=== PATIENT | male | born 1960 | race Caucasian/White ===

== ENCOUNTER → 2020-07-30 13:04 | Outpatient (BNVA) | payer OTHER, SELFPAY | PROVIDERS: Visit Provider Physician Assistant | DX: M06.9 Rheumatoid arthritis, unspecified (principal); M22.2X1 Patellofemoral disorders, right knee; M22.2X2 Patellofemoral disorders, left knee | CPT/HCPCS: 99202 ==

== ENCOUNTER 2020-08-31 14:46 | Outpatient (RCR) | payer OTHER, SELFPAY ==
--- NOTE | 2020-09-23 09:46 | MHC.PT.DC ---
[facility] [place] [facility] [place] Office [place] [facility] [address] Yulia Karimi [address] [phone] F: [phone] F: [phone] F: [phone] F: [phone] Physical Therapy Discharge Report Diagnosis: B patella femoral dysfunction Date of Surgery: Date of Evaluation: 08/31/20 Date of Discharge: 09/23/20 Treatments to Date: 1 Cancellations to Date: 0 No Shows to Date: 0 Discharge Status: Patient Elected to Stop Discharge Summary: Pt is a 59 y/o male referred to PT for eval and treat of B knee pain. Pt is clinically significant for increased quad and hamstring tightness, Pt is strong about B knees / hips and walks with a relative WNL gait. PT eval was completed and while discussing his program Pt reported that he did not want to continue PT until he is seen by rheumatology citing he does not believe PT is warranted until he knows for sure the cause of his pain; Note: Pt also cited co pay as a factor as well. Pt was educated on a course of PT and whether or not he is able to achieve his goals goes a long way towards trialing other management and assessments; Pt adamant he did not want to participate until he is seen by rheumatology; Pt did express that he felt his evaluation was informative and pleasant and hoped to work with this therapist in the future if needed, but not at this time. Also of note: Pt reports he has not seen a PCP in 10-12 years. Chart held open x 3 weeks in case Pt returned for care. Electronically signed by: Chris Robbins PT. Please sign and return to therapist. Thank you for your referral.
== END 2020-09-23 09:48 | disposition home or self-care (01) ==
LOC: HO.PTCHIC 14:46
PROVIDERS: PCP Internal Medicine; Visit Provider Physician Assistant
DX: M22.2X1 Patellofemoral disorders, right knee (principal); M22.2X2 Patellofemoral disorders, left knee; M06.9 Rheumatoid arthritis, unspecified
CPT/HCPCS: 97110; 97161

== ENCOUNTER 2020-09-30 09:05 | Outpatient (REF) | payer OTHER, SELFPAY ==
--- NOTE | ~2020-09-30 | XR_ITS ---
EXAMINATION: XR FOOT, BILATERAL CLINICAL INFORMATION: Joint pain. COMPARISON: None TECHNIQUE: Bilateral feet each 3 views . FINDINGS: Right foot: Prominent accessory navicular. No acute fracture or dislocation is seen. No apparent significant arthropathy is seen. Minimal dorsal talar neck spurring. Small anterior osteophyte in the distal tibia. No erosions. No abnormal soft tissue calcification. Left foot: Suspected small accessory navicular. No fracture or dislocation. No apparent significant arthropathy. Alignment is maintained. No erosions. No abnormal soft tissue calcification. Small Achilles tendon insertional enthesopathy. XR/XR foot RT 2V IMPRESSION: No visible significant arthropathy. No acute fracture.
--- NOTE | ~2020-09-30 | XR_ITS ---
EXAMINATION: XR KNEE, LEFT CLINICAL INFORMATION: Pain. COMPARISON: None TECHNIQUE: Four views of the left knee. FINDINGS: Mild medial compartment joint space narrowing. No fracture or dislocation. No effusion. No abnormal soft tissue calcification. XR/XR knee LT 3V IMPRESSION: Mild medial compartment arthritis.
--- NOTE | ~2020-09-30 | XR_ITS ---
EXAMINATION: XR FOOT, BILATERAL CLINICAL INFORMATION: Joint pain. COMPARISON: None TECHNIQUE: Bilateral feet each 3 views . FINDINGS: Right foot: Prominent accessory navicular. No acute fracture or dislocation is seen. No apparent significant arthropathy is seen. Minimal dorsal talar neck spurring. Small anterior osteophyte in the distal tibia. No erosions. No abnormal soft tissue calcification. Left foot: Suspected small accessory navicular. No fracture or dislocation. No apparent significant arthropathy. Alignment is maintained. No erosions. No abnormal soft tissue calcification. Small Achilles tendon insertional enthesopathy. XR/XR foot LT 2V IMPRESSION: No visible significant arthropathy. No acute fracture.
[2020-09-30 10:29] LABS: MANUAL DIFF FLAG NO
[2020-09-30 10:41] LABS: Basophils Absolute Auto 0.1 X10*3/uL (0.0-0.2); Basophils Percent Auto 0.9 % (0-2); Eosinophils Absolute Auto 0.5 X10*3/uL (0.0-0.4); Eosinophils Percent Auto 5.5 % (0-4); Hematocrit 41.5 % (42-52); Hemoglobin 14.3 g/dl (14.0-18.0); Imm Gran Abs Auto 0.03 X10*3/uL (0.00-0.03); Imm Gran Pct Auto 0.3 % (0.0-0.4); Lymphocytes Absolute Auto 3.6 X10*3/uL (1.2-4.9); Lymphocytes Percent Auto 36.4 % (20-40); Mean Corpuscular HGB Conc 34.5 g/dl (31.0-36.0); Mean Corpuscular Hemoglobin 29.5 pg (27.0-33.0); Mean Corpuscular Volume 85.6 fL (80-98); Mean Platelet Volume 9.5 fL (9.4-12.4); Monocytes Absolute Auto 0.7 X10*3/uL (0.1-1.2); Monocytes Percent Auto 6.9 % (2-11); Neutrophils Absolute Auto 4.9 X10*3/uL (2.0-8.3); Platelet Count 234 X10*3/uL (160-400); Red Blood Count 4.85 X10*6/uL (4.60-5.80); Red Cell Distribution Width 12.6 % (11.0-16.0); White Blood Count 9.8 X10*3/uL (4.8-10.8)
[2020-09-30 10:50] LABS: Alanine Aminotransferase 26 U/L (0-40); Albumin Level 4.4 g/dL (3.5-5.0); Alkaline Phosphatase 72 U/L (39-117); Anion Gap 14 (12-20); Aspartate Amino Transferase 22 U/L (5-37); Bilirubin Total 0.6 mg/dL (0.0-1.0); Blood Urea Nitrogen 14 mg/dL (9-16); C Reactive Protein 0.41 mg/dL (< or = 0.50); Calcium 9.2 mg/dL (8.4-10.2); Carbon Dioxide 27 mmol/L (22-29); Chloride 102 mmol/L (96-108); Estimated Glomerular Filt Rate > 60; Glucose Random 129 mg/dL (60-115); Potassium 4.5 mmol/L (3.3-5.1); Rheumatoid Factor < 15.0 IU/mL (<15.0); Sodium 138 mmol/L (135-145); Total Protein 7.3 g/dL (6.5-8.0)
[2020-09-30 11:15] LABS: Thyroid Stimulating Hormone 2.49 uIU/mL (0.32-4.0)
[2020-09-30 11:30] LABS: Erythrocyte Sedimentation Rate 5 MM/HR (0-15)
[2020-10-01 05:07] LABS: Lyme Abs Screen <0.90 index
[2020-10-05 13:17] LABS: Cyclic Citrullinated Peptide <16 UNITS
[2020-10-06 10:11] LABS: Vitamin D 25-OH, D2 <4 ng/mL; Vitamin D 25-OH, D3 12 ng/mL; Vitamin D 25-OH, Total 12 ng/mL (30-100)
== END 2020-09-30 09:06 | disposition home or self-care (01) ==
LOC: HO.XRAY 09:05
PROVIDERS: Visit Provider Student in an Organized Health Care Education/Training Program
DX: M25.50 Pain in unspecified joint (principal); R00.1 Bradycardia, unspecified; Z79.899 Other long term (current) drug therapy
CPT/HCPCS: 36415; 73562; 73620; 80053; 82306; 84443; 85025; 85652; 86140; 86200; 86431; 86617; 86618; 99202

== ENCOUNTER → 2020-10-27 14:02 | Outpatient (BNVA) | payer OTHER, SELFPAY | PROVIDERS: PCP Internal Medicine; Visit Provider Internal Medicine Cardiovascular Disease | DX: I35.0 Nonrheumatic aortic (valve) stenosis (principal) | CPT/HCPCS: 93005; 99202 ==

== ENCOUNTER → 2020-11-04 14:02 | Outpatient (REF) | payer OTHER, SELFPAY ==
--- NOTE | 2020-11-04 14:00 | CA_ITS ---
Transthoracic Echocardiogram Patient (Last, First, Middle): Dean Jenkins, Gender: Male Date of : 1960 Age: 60 Procedure Date: 11/04/2020 Procedure Type: Transthoracic Echocardiogram Location: OP Height: 172.72 cm Weight: 98.01 kg BSA: 2.11 m2 Heart Rate: bpm BP: 160 / 72 mmHg Technical Assoc: ROSY Martinez MD: Stevenson Cuello MD Semiconductor Wafer Inspector: Víctor Baumann MD Symptoms: I35.0 Study Quality: Fair ECG Rhythm: Sinus Conclusions: - 1. Normal LV systolic function with grade 1 diastolic dysfunction 2. Mild aortic regurgitation 3. Normal RV systolic pressure 4. No pericardial effusion Findings Left Ventricle Normal left ventricular size, thickness, and systolic function. The visually estimated ejection fraction is between 55-60%. Spectral Doppler is indicative of an impaired relaxation filling pattern. E/E prime ratio is <8, consistent with normal filling pressures. Evidence suggests grade I (mild) diastolic dysfunction. Right Ventricle Normal right ventricular cavity size and systolic function. Atria The left atrium is normal in size. There is no evidence of interatrial shunt. The right atrium is normal in size. Aortic Valve The aortic valve was not well visualized. There is no aortic valve stenosis. There is mild aortic valve regurgitation. Mitral Valve Likely normal mitral valve structure and function. There is trace mitral valve regurgitation. There is no mitral valve stenosis. Tricuspid Valve Likely normal tricuspid valve structure and function. There is mild tricuspid valve regurgitation. The right ventricular systolic pressure is normal. The right ventricular systolic pressure is 37 mmHg. Normal right atrial pressure. There is no evidence of pulmonary hypertension. Great Vessels All visible segments of the aorta are normal in size. The pulmonary artery was not well visualized. Venous The inferior vena cava is normal in size and collapses greater than 50% with inspiration. Pericardium/Pleural There is no evidence of pericardial effusion. Prior Study Comparison No prior study available for comparison. Measurements 2D Linear Measurements IVSd: 1.07 0.6-0.9/0.6-1.0 cm LVIDd: 5.56 3.9-5.3/4.2-5.9 cm LVIDd Index: 2.64 2.4-3.2/2.2-3.1 cm/m2 LVIDs: 3.54 2.0-3.6 cm LVPWd: 1.07 0.7-1.1 cm Ao Root: 3.40 2.1-3.5 cm LA Diam: 3.90 2.7-3.8/3.0-4.0 cm LAIDs Index: 1.85 1.5-2.3 cm/m2 LV Mass: 296.04 67-162/88-224 g LV Mass Index: 140.30 43-95/49-115 g/m2 LVOT Diam: 2.30 3.0+(-)1.3 cm 2D Systolic Function EF 4C: 54.60 >55% EF 2C: 55.90 >55% EF BiP: 55.40 >55% Mitral Valve MV Pk E: 0.63 MV PK A: 0.70 MV Decel Time: 225.00 E/A: 0.90 E'Lateral: 7.07 E'Medial: 5.22 E/E' Med: 12.10 E/E' Lat: 8.90 PHT: 66.00 MVA PHT: 3.33 Decel Frio: 2.80 Aortic Valve AoV Pk Ezio: 1.79 AoV Mn Ezio: 1.23 AoV VTI: 0.35 AoV Pk Grad: 13.00 Aov Mn Grad: 7.00 SALVATORE Cont.VTI: 3.26 LVOT LVOT Pk Ezio: 1.55 LVOT Mn Ezio: 0.93 LVOT VTI: 0.28 LVOT Pk Grad: 10.00 LVOT Mn Grad: 4.00 LVOT Diam: 2.30 LVOT Area: 4.15 Diastolic Function MV Pk E: 0.63 MV Pk A: 0.70 E/A: 0.90 E'Medial: 5.22 E/E' Med: 12.10 E' Laterial: 7.07 E/E' Lat: 8.90 Tricuspid Valve TR Pk Ezio: 2.90 TR Pk Grad: 34.00 RA Press: 3.00 RVSP: 37.00 Great Vessels Aorta Ao Root-2D: 3.40 2.0-3.7 cm Ao Asc: 3.30 2.1-3.4 cm Ao Arch: 2.70 Updated in Other Vendor System with Status of Final Víctor Baumann MD electronically signed on 11/04/2020 4:43:14 PM with status of Final
== END ==
LOC: HO.CARD 14:02
PROVIDERS: Visit Provider Internal Medicine Cardiovascular Disease
DX: I35.0 Nonrheumatic aortic (valve) stenosis (principal)
CPT/HCPCS: 93306

== ENCOUNTER → 2020-12-29 15:03 | Outpatient (BNVA) | payer OTHER, SELFPAY | PROVIDERS: Visit Provider Internal Medicine Cardiovascular Disease | DX: R01.1 Cardiac murmur, unspecified (principal); R07.9 Chest pain, unspecified | CPT/HCPCS: 99212 ==

== ENCOUNTER → 2020-12-31 10:07 | Outpatient (REF) | payer OTHER, SELFPAY ==
--- NOTE | 2020-12-31 10:18 | CA_ITS ---
Acquisition Time: 2020-12-31 10:22:40 Total Exercise Time: 00:06:23 Test Indications: CP Medications: SEE CHART Protocol: DESIRAE Max HR: 129 BPM 81% of Pred: 159 BPM Max BP: 230/070 mmHG Max Work Load: 7.5 METS Exercise stress test with exercise 6 min 23 sec of Desirae protocol, achieving 81% MPHR, with 7/10 upper anterior chest tightness, Like my heart was burning , mild shortness of breath, with PACs, atrial cuplets noted early in recovery, isolated PVCs in later recovery, with hypertensive response to exercise max BP 230/70, with EKG meeting criteria for ischemia: 1-[address] depressions inferiorly, V4-V6, ST elevation aVR with slow gradual improvement in recovery. His chest discomfort resolved with rest. His BP gradually retuned to baseline. Test reviewed with Dr Santillan. Referred By: Stevenson Cuello Overread By: FAN KENNEDY
== END ==
LOC: HO.CARD 10:07
PROVIDERS: Visit Provider Internal Medicine Cardiovascular Disease
DX: R07.9 Chest pain, unspecified (principal)
CPT/HCPCS: 93017

== ENCOUNTER 2021-01-21 13:15 | Emergency (ER) | payer OTHER, SELFPAY ==
--- NOTE | ~2021-01-21 | US_ITS ---
EXAMINATION: US VENOUS ULTRASOUND WITH DOPPLER LOWER EXTREMITY, RIGHT CLINICAL INFORMATION: Assess for blood clot COMPARISON: None TECHNIQUE: Ultrasound of the deep veins is performed from the hip to the calf with compression sonography and color and pulse Doppler assessment. Spectral analysis with color-flow imaging is performed. FINDINGS: There is normal venous compression and respiratory variation and augmented flow. The visualized common femoral vein, superficial femoral vein, profunda femoral vein, popliteal vein, and the trifurcation region shows no evidence of deep venous thrombosis. There is no significant popliteal fossa cyst. If the patient's symptoms persist, followup ultrasound in 5 days 7 days might be of value to exclude proximal propagation from a non-visualized calf vein. US/US venous duplex LE RT IMPRESSION: No DVT demonstrated in the right lower extremity.
--- NOTE | ~2021-01-21 | XR_ITS ---
EXAMINATION: XR FEMUR, RIGHT CLINICAL INFORMATION: Pain COMPARISON: None TECHNIQUE: AP and lateral views of the right femur were obtained. FINDINGS: The bones and soft tissues are normal. No fracture. No osseous lesions. XR/XR femur RT 2V IMPRESSION: No focal lesion.
[2021-01-21 14:43] VITALS: BP 164/65; PULSE 96; RESP 19; TEMP 36.6; O2SAT 96; BMI 29.5
[2021-01-21 15:23] LABS: MANUAL DIFF FLAG NO
[2021-01-21 15:25] LABS: Basophils Absolute Auto 0.1 X10*3/uL (0.0-0.2); Basophils Percent Auto 0.8 % (0-2); Eosinophils Absolute Auto 0.5 X10*3/uL (0.0-0.4); Eosinophils Percent Auto 4.1 % (0-4); Hematocrit 42.2 % (42-52); Hemoglobin 14.4 g/dl (14.0-18.0); Imm Gran Abs Auto 0.05 X10*3/uL (0.00-0.03); Imm Gran Pct Auto 0.5 % (0.0-0.4); Lymphocytes Absolute Auto 3.7 X10*3/uL (1.2-4.9); Lymphocytes Percent Auto 33.6 % (20-40); Mean Corpuscular HGB Conc 34.1 g/dl (31.0-36.0); Mean Corpuscular Hemoglobin 29.1 pg (27.0-33.0); Mean Corpuscular Volume 85.4 fL (80-98); Mean Platelet Volume 9.2 fL (9.4-12.4); Monocytes Percent Auto 9.1 % (2-11); Neutrophils Absolute Auto 5.8 X10*3/uL (2.0-8.3); Neutrophils Percent Auto 51.9 % (45-73); Platelet Count 303 X10*3/uL (160-400); Red Blood Count 4.94 X10*6/uL (4.60-5.80); White Blood Count 11.1 X10*3/uL (4.8-10.8)
[2021-01-21 15:41] LABS: COVID-19 Test Negative (Negative)
[2021-01-21 15:43] LABS: Prothrombin Time 11.9 SEC (9.9-13.0)
[2021-01-21 15:54] LABS: Anion Gap 16 (12-20); Blood Urea Nitrogen 11 mg/dL (9-16); Calcium 9.5 mg/dL (8.4-10.2); Carbon Dioxide 22 mmol/L (22-29); Chloride 104 mmol/L (96-108); Creatinine Clr Calc Pharmacy 98.4; Estimated Glomerular Filt Rate > 60; Glucose Random 147 mg/dL (60-115); Potassium 4.6 mmol/L (3.3-5.1); Sodium 137 mmol/L (135-145)
--- NOTE | 2021-01-21 16:47 | ED.GENADULT ---
HPI - General Adult General Chief complaint: General Medical Stated complaint: kidney stone - ? blood clot Time Seen by Provider: 01/21/21 16:46 Source: patient Mode of arrival: ambulatory Limitations: no limitations History of Present Illness HPI narrative: 60-year-old male came in for evaluation of a right thigh numbness. 60-year-old male came in for 5 days of right thigh numbness and pain, patient is concern of blood clot. No recent trauma or fall. Patient had a recent renal procedure for kidney removal. No recent travel or prolonged immobilization. Patient is concerned because the numbness and severe pain in the right thigh making him unable to ambulate at home. Related Data Home Medications Medication Instructions Recorded Confirmed ibuprofen 200 mg capsule 200 mg PO Q6H PRN 09/30/20 10/27/20 melatonin 10 mg capsule 10 mg PO BEDTIME PRN 09/30/20 10/27/20 Previous Rx's Medication Instructions Recorded gabapentin 100 mg capsule 100 mg PO BEDTIME #60 cap 10/27/20 miscellaneous medical supply #1 ea 10/27/20 (Blood Pressure Cuff) ibuprofen 600 mg tablet 600 mg PO Q8H PRN #10 tab 01/21/21 Allergies Allergy/AdvReac Type Severity Reaction Status Date / Time No Known Allergies Allergy Verified 12/29/20 15:13 Review of Systems Review of Systems: All other systems are reviewed and are negative Constitutional: Reports as per HPI and Reports no additional constitutional complaints Eyes: Reports as per HPI and Reports no additional eye complaints Reports system reviewed and no additional complaints, except as documented Cardiovascular: Reports as per HPI and Reports no additional cardiovascular complaints Respiratory: Reports as per HPI and Reports no additional respiratory complaints Gastrointestinal: Reports as per HPI and Reports no additional gastrointestinal complaints Genitourinary: Reports no additional female genitourinary complaints Musculoskeletal: Reports no additional musculoskeletal complaints Skin/Breast: Reports system reviewed and no additional complaints, except as docu Psychiatric: Reports no additional psychiatric complaints Endocrine: Reports no additional endocrine complaints Hematologic/Lymphatic: Reports no additional hematologic/lymphatic complaints Allergic/Immunologic: Reports no additional allergic/immunologic complaints Reports system reviewed and no additional complaints, except as documented and Reports Abnormal speech present [facility] Past Medical History Surgical History No pertinent past surgical history Social History Social History Alcohol intake: never Patient Tobacco Use Status: Former Tobacco user Tobacco use type: Cigarette Cigarettes Per Day: 9 Years Smoked: 15+ Advance Directives: Yes Advance Directives Information Provided: Yes Advance Directives on File: No Current occupational status: employed 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 Blood pressure normal. Heart rate normal. Respiration rate normal. Temperature normal. Oxygen saturation normal. Appearance: Alert. Oriented X3. No acute distress. Head: Normal external exam. Normocephalic. Atraumatic. No Cruz signs noted. No raccoon eyes noted Eyes: PERRLA. EOMI. Conjunctiva and sclera normal. Eyelids normal. ENT: TM's Normal. Pharynx normal. Uvula midline. Moist mucous membranes. No trismus noted. No drooling noted. No muffled voice noted. Neck: Normal inspection. Neck supple. FROM. No adenopathy. Thyroid Normal. No meningeal signs. No neck mass noted. CVS: Normal heart rate and rhythm. Heart sound normal. No murmurs noted. Pulses normal throughout. Respiratory: No respiratory distress. Painless inspiration. Breath sounds normal. No wheezes/rales/rhonchi noted. Chest nontender. No accessory muscle usage noted or decreased air movement noted. Abdomen: Soft and nontender. Bowel sounds normal in all 4 quadrants. No distention noted. No organomegaly noted. No visible injury noted. Back: No CVA tenderness. Full range of motion noted. Skin: Skin warm and dry. Normal skin color. Normal skin turgor. No rashes/lesions/lacerations noted. Extremities: No lower extremity edema. Extremities exhibit normal range of motion. Extremities nontender. Neuro: Oriented X 3. Cranial nerve exam: II-XII are grossly intact No motor deficit. No sensory deficit. Reflexes normal. Course Course Course Narrative: Assessment and plan. 60-year-old male came in with right thigh pain/numbness for the past 5 days bother the patient walking and ambulating at home. Patient had workup in the emergency department showed no rhabdomyolysis, no DVT, no bony abnormalities on the x-ray. Patient was given NSAIDs/oxycodone was able to ambulate in the emergency department with normal gait. Patient was instructed to use NSAIDs/elevation of the legs/and follow-up with PCP. Medical Decision Making Lab Data Lab results reviewed: Yes I reviewed the patient's lab results. Result diagrams: 01/21/21 15:18 01/21/21 15:18 Labs: Lab Results 01/21/21 01/21/21 01/21/21 Range/Units 15:18 15:18 15:18 WBC 11.1 H (4.8-10.8) X10*3/uL RBC 4.94 (4.60-5.80) X10*6/uL Hgb 14.4 (14.0-18.0) g/dl Hct 42.2 (42-52) % MCV 85.4 (80-98) fL MCH 29.1 (27.0-33.0) pg MCHC 34.1 (31.0-36.0) g/dl RDW 13.0 (11.0-16.0) % Plt Count 303 D (160-400) X10*3/uL MPV 9.2 L (9.4-12.4) fL Immature Gran % (Auto) 0.5 H (0.0-0.4) % Neut % (Auto) 51.9 (45-73) % Lymph % (Auto) 33.6 (20-40) % [place] % (Auto) 9.1 (2-11) % Eos % (Auto) 4.1 H (0-4) % Baso % (Auto) 0.8 (0-2) % Lymph # (Auto) 3.7 (1.2-4.9) X10*3/uL [place] # (Auto) 1.0 (0.1-1.2) X10*3/uL Eos # (Auto) 0.5 H (0.0-0.4) X10*3/uL Baso # (Auto) 0.1 (0.0-0.2) X10*3/uL Abs Immat Gran (auto) 0.05 H (0.00-0.03) X10*3/uL Absolute Neuts (auto) 5.8 (2.0-8.3) X10*3/uL Absolute Nucleated RBC 0.000 (0.0-0.012) X10*3/uL Nucleated RBC % (auto) 0.0 (0.0-0.2) /100WBC PT 11.9 (9.9-13.0) SEC INR 1.0 (0.9-1.1) Sodium 137 (135-145) mmol/L Potassium 4.6 (3.3-5.1) mmol/L Chloride 104 (96-108) mmol/L Carbon Dioxide 22 (22-29) mmol/L Anion Gap 16 (12-20) BUN 11 (9-16) mg/dL Creatinine 0.85 (0.5-1.4) mg/dL Estim Creat Clear Calc 98.4 Estimated GFR > 60 Random Glucose 147 H (60-115) mg/dL Calcium 9.5 (8.4-10.2) mg/dL Total Creatine Kinase 77 (38-174) U/L COVID-19 (LESLY) (Negative) COVID-19 Clin Com 01/21/21 Range/Units 15:18 WBC (4.8-10.8) X10*3/uL RBC (4.60-5.80) X10*6/uL Hgb (14.0-18.0) g/dl Hct (42-52) % MCV (80-98) fL MCH (27.0-33.0) pg MCHC (31.0-36.0) g/dl RDW (11.0-16.0) % Plt Count (160-400) X10*3/uL MPV (9.4-12.4) fL Immature Gran % (Auto) (0.0-0.4) % Neut % (Auto) (45-73) % Lymph % (Auto) (20-40) % [place] % (Auto) (2-11) % Eos % (Auto) (0-4) % Baso % (Auto) (0-2) % Lymph # (Auto) (1.2-4.9) X10*3/uL [place] # (Auto) (0.1-1.2) X10*3/uL Eos # (Auto) (0.0-0.4) X10*3/uL Baso # (Auto) (0.0-0.2) X10*3/uL Abs Immat Gran (auto) (0.00-0.03) X10*3/uL Absolute Neuts (auto) (2.0-8.3) X10*3/uL Absolute Nucleated RBC (0.0-0.012) X10*3/uL Nucleated RBC % (auto) (0.0-0.2) /100WBC PT (9.9-13.0) SEC INR (0.9-1.1) Sodium (135-145) mmol/L Potassium (3.3-5.1) mmol/L Chloride (96-108) mmol/L Carbon Dioxide (22-29) mmol/L Anion Gap (12-20) BUN (9-16) mg/dL Creatinine (0.5-1.4) mg/dL Estim Creat Clear Calc Estimated GFR Random Glucose (60-115) mg/dL Calcium (8.4-10.2) mg/dL Total Creatine Kinase (38-174) U/L COVID-19 (LESLY) Negative (Negative) COVID-19 Clin Com See Note Imaging Data Right femur x-ray: Radiologist's impression: No acute pathology Right lower extremities ultrasound: Radiologist's impression: No evidence of DVT Discharge Plan Discharge Clinical Impression: Acute myofascial pain Patient Disposition: Home, Self-Care Instructions: Muscle Strain (ED) Prescriptions: New ibuprofen 600 mg tablet 600 mg PO Q8H PRN (Reason: pain) Qty: 10 RF: 0 No Action gabapentin 100 mg capsule 100 mg PO BEDTIME Qty: 60 RF: 0 (DME) Blood Pressure Cuff Misc See Rx Instructions .ROUTE .MEDSUPPLY Qty: 1 RF: 0 ibuprofen 200 mg capsule 200 mg PO Q6H PRNRF: 0 melatonin 10 mg capsule 10 mg PO BEDTIME PRNRF: 0 Referrals: Physician,Unknown [Primary Care Provider] - 2 days
[2021-01-21 17:27] VITALS: BP 178/73; PULSE 66; RESP 18; O2SAT 96
[2021-01-21] MEDS: oxyCODONE HCl Immed Release 5 MG TABLET PO (17:29)
[2021-01-21] MEDS: Ibuprofen 600 MG TABLET PO (17:30)
== END 2021-01-21 18:59 | disposition home or self-care (01) ==
PROVIDERS: Emergency Provider Emergency Medicine
DX: M79.18 Myalgia, other site (principal); M79.651 Pain in right thigh; R20.0 Anesthesia of skin; Z20.822 Contact with and (suspected) exposure to COVID-19; Z90.5 Acquired absence of kidney; I10 Essential (primary) hypertension
CPT/HCPCS: 36415; 73552; 80048; 82550; 85025; 85610; 87635; 93971; 99283; 99284

== ENCOUNTER → 2021-03-23 15:19 | Outpatient (BNVA) | payer OTHER, SELFPAY | PROVIDERS: Visit Provider Internal Medicine Cardiovascular Disease | DX: R07.9 Chest pain, unspecified (principal); I20.0 Unstable angina | CPT/HCPCS: 93005; 99212 ==

== ENCOUNTER 2021-04-14 17:13 | Outpatient (REF) | payer OTHER, SELFPAY ==
[2021-04-14 17:58] LABS: Hematocrit 41.5 % (42.0-52.0); Hemoglobin 14.6 g/dl (14.0-18.0); Mean Corpuscular HGB Conc 35.2 g/dl (31.0-36.0); Mean Corpuscular Hemoglobin 29.1 pg (27.0-33.0); Mean Corpuscular Volume 82.8 fL (80.0-98.0); Mean Platelet Volume 9.7 fL (9.4-12.4); Platelet Count 317 X10*3/uL (160-400); Red Blood Count 5.01 X10*6/uL (4.60-5.80); Red Cell Distribution Width 13.1 % (11.0-16.0); White Blood Count 10.1 X10*3/uL (4.8-10.8)
[2021-04-14 18:03] LABS: INTERNATIONAL NORM RATIO 1.1 (0.9-1.1); Prothrombin Time 12.7 SEC (9.9-13.0)
[2021-04-14 18:14] LABS: Anion Gap 11 (12-20); Blood Urea Nitrogen 11 mg/dL (9-16); Calcium 9.7 mg/dL (8.4-10.2); Carbon Dioxide 29 mmol/L (22-29); Chloride 100 mmol/L (96-108); Estimated Glomerular Filt Rate > 60; Glucose Random 134 mg/dL (60-115); Potassium 4.6 mmol/L (3.3-5.1); Sodium 135 mmol/L (135-145)
== END 2021-04-14 17:14 | disposition home or self-care (01) ==
LOC: HO.LAB 17:13
PROVIDERS: Visit Provider Internal Medicine Cardiovascular Disease
DX: R94.39 Abnormal result of other cardiovascular function study (principal); R07.9 Chest pain, unspecified
CPT/HCPCS: 36415; 80048; 85027; 85610

== ENCOUNTER → 2021-05-05 15:25 | Outpatient (BNVA) | payer OTHER, SELFPAY | PROVIDERS: Visit Provider Internal Medicine Cardiovascular Disease | DX: I20.8 Other forms of angina pectoris (principal); T14.8XXD Other injury of unspecified body region, subsequent encounter; Z98.61 Coronary angioplasty status | CPT/HCPCS: 99212 ==

== ENCOUNTER → 2021-06-30 15:29 | Outpatient (BNVA) | payer OTHER, SELFPAY | PROVIDERS: Visit Provider Internal Medicine Cardiovascular Disease | DX: I20.8 Other forms of angina pectoris (principal); I10 Essential (primary) hypertension; Z98.61 Coronary angioplasty status | CPT/HCPCS: 99212 ==

== ENCOUNTER → 2021-09-08 15:54 | Outpatient (BNVA) | payer OTHER, SELFPAY | PROVIDERS: Visit Provider Internal Medicine Cardiovascular Disease | DX: I20.8 Other forms of angina pectoris (principal); Z98.61 Coronary angioplasty status | CPT/HCPCS: 99212 ==

== ENCOUNTER → 2022-01-31 13:08 | Outpatient (BNVA) | payer OTHER, SELFPAY | PROVIDERS: Visit Provider Nurse Practitioner Family | DX: I25.10 Atherosclerotic heart disease of native coronary artery without angina pectoris (principal); R01.1 Cardiac murmur, unspecified; E78.5 Hyperlipidemia, unspecified; F17.210 Nicotine dependence, cigarettes, uncomplicated; Z98.61 Coronary angioplasty status; Z98.890 Other specified postprocedural states | CPT/HCPCS: 93005; 99212 ==

== ENCOUNTER → 2022-08-17 15:37 | Outpatient (BNVA) | payer OTHER, SELFPAY | PROVIDERS: Visit Provider Nurse Practitioner Family | DX: I25.10 Atherosclerotic heart disease of native coronary artery without angina pectoris (principal); I10 Essential (primary) hypertension; R01.1 Cardiac murmur, unspecified; E78.5 Hyperlipidemia, unspecified; Z98.61 Coronary angioplasty status | CPT/HCPCS: 99212 ==

== ENCOUNTER 2023-02-23 16:24 | Outpatient (REF) | payer OTHER, SELFPAY ==
[2023-02-23 16:39] LABS: MANUAL DIFF FLAG NO
[2023-02-23 16:43] LABS: Basophils Absolute Auto 0.1 X10*3/uL (0.0-0.2); Basophils Percent Auto 1.3 % (0-2); Eosinophils Absolute Auto 0.4 X10*3/uL (0.0-0.4); Eosinophils Percent Auto 5.4 % (0-4); Hematocrit 41.7 % (42.0-52.0); Hemoglobin 14.7 g/dl (14.0-18.0); Imm Gran Abs Auto 0.03 X10*3/uL (0.00-0.03); Imm Gran Pct Auto 0.4 % (0.0-0.4); Lymphocytes Absolute Auto 2.1 X10*3/uL (1.2-4.9); Lymphocytes Percent Auto 27.2 % (20-40); Mean Corpuscular HGB Conc 35.3 g/dl (31.0-36.0); Mean Corpuscular Hemoglobin 29.6 pg (27.0-33.0); Mean Corpuscular Volume 83.9 fL (80.0-98.0); Mean Platelet Volume 9.6 fL (9.4-12.4); Monocytes Absolute Auto 0.6 X10*3/uL (0.1-1.2); Monocytes Percent Auto 7.1 % (2-11); Neutrophils Absolute Auto 4.6 x10*3/uL (2.0-8.3); Neutrophils Percent Auto 58.6 % (45-73); Platelet Count 218 X10*3/uL (160-400); Red Blood Count 4.97 X10*6/uL (4.60-5.80); Red Cell Distribution Width 12.9 % (11.0-16.0); White Blood Count 7.8 X10*3/uL (4.8-10.8)
[2023-02-23 18:00] LABS: Alanine Aminotransferase 25 U/L (0-40); Albumin Level 4.2 g/dL (3.5-5.0); Alkaline Phosphatase 133 U/L (39-117); Anion Gap 14 (12-20); Aspartate Amino Transferase 17 U/L (5-37); Bilirubin Total 0.7 mg/dL (0.0-1.0); Blood Urea Nitrogen 10 mg/dL (9-16); Calcium 9.9 mg/dL (8.4-10.2); Carbon Dioxide 24 mmol/L (22-29); Chloride 99 mmol/L (96-108); Cholesterol 135 mg/dL (<200); Estimated Glomerular Filt Rate > 60; Glucose Random 492 mg/dL (60-115); HDL Cholesterol 39 mg/dL (>40); LDL Cholesterol Calculated 33 mg/dL (<100); Potassium 4.6 mmol/L (3.3-5.1); Sodium 132 mmol/L (135-145); Total Protein 6.7 g/dL (6.5-8.0); Triglycerides 317 mg/dL (<150)
== END 2023-02-23 16:25 | disposition home or self-care (01) ==
LOC: HO.LAB 16:24
PROVIDERS: Visit Provider Nurse Practitioner Family
DX: I20.8 Other forms of angina pectoris (principal)
CPT/HCPCS: 36415; 80053; 80061; 85025

== ENCOUNTER 2023-02-26 15:35 | Outpatient (AMB) | payer OTHER, SELFPAY ==
[2023-02-26 15:36] VITALS: BP 148/58; PULSE 56; BMI 25.8
--- NOTE | 2023-02-26 15:36 | A.OFFVIS_ITS ---
Intake Vital Signs 02/26/23 15:36 Height 5 ft 8 in Weight 169 lb 12.095 oz BMI 25.8 BP 148/58 H Blood Pressure Location Rt brachial Position Sitting Pulse 56 Intake Visit Reasons: 6 mth f/up per DC Intake Note: 6 month follow up w/ EKG Internal Auditor Required: No Accompanied by: Self / Same As Patient Allergies No Known Allergies Allergy (Verified 02/26/23 15:37) Medication List - Last Reconciled 02/26/23 by Stevenson Cuello MD amlodipine 2.5 mg PO DAILY aspirin 81 mg PO DAILY atorvastatin 80 mg PO BEDTIME clopidogrel 75 mg PO DAILY 90 days gabapentin 100 mg PO BEDTIME PRN melatonin 10 mg PO BEDTIME PRN metoprolol succinate ER 25 mg PO DAILY miscellaneous medical supply (Blood Pressure Cuff) As directed HPI HPI Comments History of Present Illness Details 62-year-old gentleman here for follow-up . He had multivessel disease for which she was referred for bypass surgery but he did not want to undergo surgery. After discussion he was taken back and underwent LAD diagonal and left main PCI. He had a dominant right coronary artery with severe stenosis which was medically managed. He is back for follow-up. He is denying any burning chest discomfort which was his original anginal pain. He has some or symptoms when he is starting to ride his bike but symptoms do not sound anginal. I have advised him to continue to exercise as before. He has missed aspirin for 3 days because he ran out. I have advised him to call us at least some week before he is about to run out his medications. 02/26/23: He returns for f/u. He is denyi ng any significant CP. He has been taking meds. He had blood work up which showed random sugar >400. I have sent him for HbA1c and his HbA1c 12. He has diabetes. [facility] Medical History (Updated 02/26/23 @ 20:11 by Stevenson Cuello MD) Heart murmur Coronary atherosclerosis Essential hypertension Surgical History History of cardiac cath Family History Mother No problems noted. Father No problems noted. 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 Review of Systems Const Denies weakness ENT Denies dizziness Card Denies chest pain, Denies chest pain with activity, Denies syncope, Denies rapid heart rate, Denies pedal edema, Denies edema, Denies leg edema, Denies lightheadedness, Denies palpitations, Denies dyspnea, Denies dyspnea on exertion and Denies orthopnea Resp Denies cough, Denies dyspnea and Denies dyspnea on exertion GI Denies hematochezia and Denies change in stool character Musc Denies abnormal gait, Denies muscle cramps, Denies muscle weakness, Denies numbness, Denies radiating pain into limb and Denies tingling Neuro Denies abnormal gait, Denies dizziness, Denies syncope, Denies numbness, Denies tingling and Denies weakness Endo Denies palpitations Physical Exam Vital Signs: Last Vital Signs Pulse 56 02/26/23 15:36 BP 148/58 H 02/26/23 15:36 BMI result Body Mass Index 25.8 GENERAL APPEARANCE: in no acute distress, pleasant. NECK: no carotid bruit, no jugular venous distention. SKIN: no suspicious lesions, warm and dry. HEART: Late-peaking systolic murmur in the aortic area radiating all over the precordium as well as to the back. Radiation of murmur to carotids and also heard over the abdomen. LUNGS: clear to auscultation bilaterally. ABDOMEN: soft, nontender. EXTREMITIES: no edema. PERIPHERAL PULSES: equal. NEUROLOGIC: No gross deficits, AAO X 3 Office Procedures EKG Details: Sinus bradycardia 55 beats per minute, normal axis, left ventricular hypertrophy, QTC 407 milliseconds. [id number], Complete Assessment & Plan Assessment & Plan (1) Essential hypertension: Code(s): I10 - Essential (primary) hypertension (2) Stable angina: Code(s): I20.8 - Other forms of angina pectoris (3) Diabetes: Code(s): E11.9 - Type 2 diabetes mellitus without complications Plan 62 male with multivessel disease. He had Left main and LAD-diagonal stenting before. He has residual RCA disease. He is denying symptoms. He has A1c 12. I have advised him to cut the sugars in his diet. Adding metformin. We will refer him to endocrinology. Orders: Orders Hemoglobin A1c Today I20.8 - Other forms of angina pectoris Referrals Endocrinology Referral E11.9 - Type 2 diabetes mellitus without complications Medications: New metformin 500 mg PO BIDWMEAL 60 tabs 3RF Coding Level of Care Code Est Pt Level 4 (08158) Diagnoses Essential hypertension I10 Stable angina I20.8 Diabetes E11.9 CPT Codes EKG - CPT: 79495-[id number], Complete ([id number])
== END 2023-02-26 15:54 | disposition home or self-care (01) ==
PROVIDERS: Visit Provider Internal Medicine Cardiovascular Disease
DX: R00.1 Bradycardia, unspecified (principal); R94.31 Abnormal electrocardiogram [ECG] [EKG]
CPT/HCPCS: 93010; 99214

== ENCOUNTER 2023-02-26 15:35 | Outpatient (REF) | payer OTHER, SELFPAY ==
[2023-02-26 16:34] LABS: Estimated Average Glucose 298 mg/dL
== END 2023-02-26 15:36 | disposition home or self-care (01) ==
LOC: HO.LAB 15:35
PROVIDERS: Visit Provider Internal Medicine Cardiovascular Disease
DX: I10 Essential (primary) hypertension (principal); I20.8 Other forms of angina pectoris; E11.9 Type 2 diabetes mellitus without complications; Z79.899 Other long term (current) drug therapy
CPT/HCPCS: 36415; 83036; 93005; 99212

== ENCOUNTER 2023-04-12 10:57 | Outpatient (AMB) | payer OTHER, SELFPAY ==
[2023-04-12 10:58] VITALS: BP 130/62; PULSE 60; O2SAT 96; BMI 26.8
--- NOTE | 2023-04-12 10:58 | MHC.PC.OV ---
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 Allergies No Known Allergies Allergy (Verified 04/12/23 10:59) Medication List - Last Reconciled 04/12/23 by Camila Rosales MD amlodipine 2.5 mg PO DAILY aspirin 81 mg PO DAILY atorvastatin 80 mg PO BEDTIME clopidogrel 75 mg PO DAILY 90 days melatonin 10 mg PO BEDTIME PRN metformin 500 mg PO BIDWMEAL metoprolol succinate ER 25 mg PO DAILY miscellaneous medical supply (Blood Pressure Cuff) As directed Tobacco use date assessed: 04/12/23 Dental Screening Dental Screen Date: 04/12/23 Did you have a dental visit in the last 12 months?: Yes Did you have a dental problem in the last 6 months where you did not have access to dental care?: No Was dental information given to patient?: Patient has dentist HPI 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 Patient has not seen primary care doctor for 3 years. 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 1. Little interest or pleasure in doing things: not at all 2. Feeling down, depressed, or hopeless: not at all 3. Trouble falling or staying asleep, or sleeping too much: nearly every day 4. Feeling tired or having little energy: several days 5. Poor appetite or overeating: not at all 6. Feeling bad about yourself - or that you are a failure or have let yourself or your family down: not at all 7. Trouble concentrating on things, such as reading the newspaper or watching television: not at all 8. Moving or speaking so slowly that other people could have noticed. Or the opposite - being so fidgety or restless that you have been moving around a lot more than usual: not at all 9. Thoughts that you would be better off or of hurting yourself in some way: not at all Total score: 4 Depression Screening Interpretation: Negative Depression Screening Done: Yes Source: Developed by Drs. Dean Partida, Marjorie Tovar, Redd Ortega and colleagues, with an educational pranay from [employer]. Thrive Questionnaire Date Thrive assessed: 04/12/23 I am a: Patient What is your living situation today?: I have a steady place to live Within the past 12 months, did the food you bought not last and you didn't have the money to get more?: Never true Within the past 12 months, did you worry whether your food would run out before you got money to buy more?: Never true Do you have trouble paying for medicines?: No Do you have trouble getting transportation to medical appointments?: No Do you have trouble paying your heating and electricity bill?: No Do you have trouble taking care of your child, family member or friend?: No Do you have trouble with day-to-day activities such as bathing, preparing meals, shopping, managing finances, etc.?: No Are you currently unemployed and looking for a job?: No Are you interested in more education?: No Please select the resources that you would like help with: None AUDIT C Alcohol Use Questionnaire (AUDIT-C) 1. How often do you have a drink containing alcohol?: Monthly or less 2. How many drinks containing alcohol do you have on a typical day when you are drinking?: 1 or 2 3. How often do you have six or more drinks on one occasion?: Never Total Score: 1 ERROL-7 AMB Questionnaire ERROL-7 Date ERROL - 7 assessed: 04/12/23 Feeling nervous, anxious, or on edge: 0 = Not at all Not being able to stop or control worryin = Not at all Worrying too much about different things: 0 = Not at all Trouble relaxin = Not at all Being so restless that it is hard to sit still: 0 = Not at all Becoming easily annoyed or irritable: 0 = Not at all Feeling afraid as if something awful might happen: 0 = Not at all Total ERROL-7 score (0-4 normal; 5-9 mild; 10-14 moderate; 15-21 severe): 0 Source: Developed by Drs. Dean Partida, Marjorie Tovar, Redd Ortega and colleagues, with an educational pranay from [employer]. Review of Systems Const All systems reviewed & are unremarkable except as noted in HPI and below Reports no additional complaints Eyes Reports no additional complaints ENT Reports no additional complaints Card Reports no additional complaints Resp Reports no additional complaints GI Reports no additional complaints Reports no additional complaints Physical exam (Primary Care) Vital Signs: Last Vital Signs Pulse 60 04/12/23 10:58 BP 130/62 04/12/23 10:58 Pulse Ox 96 04/12/23 10:58 Oxygen Delivery Method Room Air 04/12/23 10:58 BMI result Body Mass Index 26.8 Tobacco/Smoking Status: Tobacco use Status Tobacco use date assessed 04/12/23 04/12/23 11:05 Patient Tobacco Use Status Current everyday Tobacco 04/12/23 11:28 Tobacco use type Cigarette 04/12/23 11:28 PHQ-9: PHQ-9 Score PHQ-9: Total score 4 04/12/23 12:47 Depression Screening Interpretation: Negative Thrive Assessment: Date of Thrive Assessment Date Thrive assessed 04/12/23 04/12/23 12:10 Const General: no acute distress HENMT Ears: hearing grossly normal bilaterally Throat: Yes posterior oropharynx normal Neck Neck: Yes no lymphadenopathy and Yes supple Resp Effort & Inspection: normal respiratory effort Auscultation: clear to auscultation bilaterally Cardio Rhythm: regular rhythm Heart sounds: S1 normal heart sound present and S2 normal heart sound present GI Inspection: Yes normal to inspection Palpation (GI): Soft to palpation Percussion: Yes normal to percussion Auscultation: normal bowel sounds Extrem Other: Diabetic foot exam skin is intact monofilament sensation intact bilaterally Results AMB Hemoglobin A1c AMB Hemoglobin A1c 9.4 % Last Edit by LIGIA Garcia on 04/12/23 11:55 AMB Random Glucose (hemocue) AMB Random Glucose (hemocue) 438 mg/dL Last Edit by LIGIA Garcia on 04/12/23 11:56 Results Reviewed Results Reviewed: Laboratory Last Values Random Glu (Clinic) 438 mg/dL 04/12/23 11:54 Hgb A1c (Clinic) 9.4 % (4.0-6.0) H 04/12/23 11:54 Assessment and Plan Assessment & Plan (1) Neuropathy: Comment: f/u podiatry EMG at [facility] Code(s): G62.9 - Polyneuropathy, unspecified (2) Heart murmur: Comment: Echo mild AI, 2020 Code(s): R01.1 - Cardiac murmur, unspecified (3) Smoker: Comment: 06/05 PPD Code(s): F17.200 - Nicotine dependence, unspecified, uncomplicated Plan: Tobacco quitting discussed with the patient (4) Nephrolithiasis: Comment: s/p stent 02/22 Code(s): N20.0 - Calculus of kidney (5) Annual physical exam: Code(s): Z00.00 - Encounter for general adult medical examination without abnormal findings Plan: Well-balanced diet regular physical activity discussed with the patient (6) Colonoscopy refused: Comment: 04/26 Code(s): Z53.20 - Procedure and treatment not carried out because of patient's decision for unspecified reasons (7) Diabetes: Code(s): E11.9 - Type 2 diabetes mellitus without complications Plan: ADA diet regular physical activity discussed with the patient. he declined monitoring his blood glucose with glucometer but agreed to have Rashid Sensor. He was referred to nurse navigator for diabetic teaching. Patient's fasting blood glucose today was over 400. Farxiga 5 mg will be added to metformin 1000 mg a day. Patient reports having looser bowel movement on 1000 mg a day of metformin but otherwise has been tolerating it well. Patient will return in 1 week and will have a fasting blood work prior to visit. Orders: Orders AMB Random Glucose (hemocue) Today Z13.9 - Encounter for screening, unspecified AMB Hemoglobin A1c Today Z13.9 - Encounter for screening, unspecified Referrals Cologuard Test Z12.11 - Encounter for screening for malignant neoplasm of colon, Z12.12 - Encounter for screening for malignant neoplasm of rectum Medications: New dapagliflozin propanediol (Farxiga) 5 mg PO DAILY 90 tabs 0RF Coding Level of Care Code New Pt Prev Care 40-64y(97151) Diagnoses Neuropathy G62.9 Heart murmur R01.1 Smoker F17.200 Nephrolithiasis N20.0 Annual physical exam Z00.00 Colonoscopy refused Z53.20 Diabetes E11.9
== END 2023-04-12 12:51 | disposition home or self-care (01) ==
PROVIDERS: PCP Internal Medicine; Visit Provider Internal Medicine
DX: Z00.00 Encounter for general adult medical examination without abnormal findings (principal); E11.42 Type 2 diabetes mellitus with diabetic polyneuropathy; G62.9 Polyneuropathy, unspecified; R01.1 Cardiac murmur, unspecified; F17.210 Nicotine dependence, cigarettes, uncomplicated; N20.0 Calculus of kidney; Z53.20 Procedure and treatment not carried out because of patient's decision for unspecified reasons
CPT/HCPCS: 82948; 83036; 99386

== ENCOUNTER 2023-04-20 13:46 | Outpatient (AMB) | payer OTHER, SELFPAY ==
--- NOTE | 2023-04-20 13:56 | A.OFFPC_ITS ---
Vital Signs 04/20/23 14:06 Height 5 ft 8 in Weight 174 lb BMI 26.5 BP 110/52 L Blood Pressure Location Lt brachial Position Sitting Pulse 67 Pulse Source Pulse Oximeter Pulse Oximetry (%) 96 Oxygen Delivery Method Room Air Intake Visit Reasons: 1 WK F/U Intake Note: Pt is here today for his 1week f/u Allergies No Known Allergies Allergy (Verified 04/20/23 14:07) Medication List - Last Reconciled 04/20/23 by Camila Rosales MD amlodipine 2.5 mg PO DAILY aspirin 81 mg PO DAILY atorvastatin 80 mg PO BEDTIME blood sugar diagnostic (FreeStyle Lite Strips) Test blood sugar twice a day blood-glucose meter (FreeStyle [place] Lite kit) As directed clopidogrel 75 mg PO DAILY 90 days empagliflozin (Jardiance) 10 mg PO DAILY melatonin 10 mg PO BEDTIME PRN metformin 500 mg PO BIDWMEAL metoprolol succinate ER 25 mg PO DAILY miscellaneous medical supply (Blood Pressure Cuff) As directed Tobacco use date assessed: 04/20/23 Dental Screening Dental Screen Date: 04/20/23 Did you have a dental visit in the last 12 months?: Yes Did you have a dental problem in the last 6 months where you did not have access to dental care?: No Was dental information given to patient?: Patient has dentist HPI 1 WK F/U HPI Details Patient presents for the follow-up of a new onset diabetes. He has not been monitoring his blood glucose. He denies polyuria polydipsia. Patient has been tolerating his medications well. he completed diabetic teaching with a nurse navigator and is contemplating if he is willing to start checking his blood glucose. 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 Dean Partida, Marjorie Tovar, Redd Ortega and colleagues, with an educational pranay from [employer]. Review of Systems Const All systems reviewed & are unremarkable except as noted in HPI and below Reports no additional complaints Eyes Reports no additional complaints ENT Reports no additional complaints Card Reports no additional complaints Resp Reports no additional complaints GI Reports no additional complaints Reports no additional complaints Physical exam (Primary Care) Vital Signs: Last Vital Signs Pulse 67 04/20/23 14:06 BP 110/52 L 04/20/23 14:06 Pulse Ox 96 04/20/23 14:06 Oxygen Delivery Method Room Air 04/20/23 14:06 BMI result Body Mass Index 26.5 Tobacco/Smoking Status: Tobacco use Status Tobacco use date assessed 04/20/23 04/20/23 14:09 Patient Tobacco Use Status Current everyday Tobacco 04/20/23 13:56 Tobacco use type Cigarette 04/20/23 13:56 e-Cigarette/Vaping Use Never Used 04/20/23 14:09 Thrive Assessment: Date of Thrive Assessment Date Thrive assessed 04/12/23 04/20/23 13:56 Const General: no acute distress HENMT Face and sinus: Yes normal facial exam Resp Effort & Inspection: normal respiratory effort Auscultation: clear to auscultation bilaterally Cardio Rhythm: regular rhythm Heart sounds: S1 normal heart sound present and S2 normal heart sound present Assessment and Plan Assessment & Plan (1) Aortic valve insufficiency: Comment: Echo 02/22 Code(s): I35.1 - Nonrheumatic aortic (valve) insufficiency Plan: Obtain follow-up echocardiogram (2) Essential hypertension: Code(s): I10 - Essential (primary) hypertension Plan: Continue current medications (3) Hyperlipidemia LDL goal <70: Code(s): E78.5 - Hyperlipidemia, unspecified Plan: Continue statin (4) Coronary atherosclerosis: Comment: S/P 3 STEVEN : L main, LAD, diagonal 04/24, remaining dominant R coronary 80% stenosis , pt refused CABG, F/U Dr. Cuello Code(s): I25.10 - Atherosclerotic heart disease of [place] coronary artery without angina pectoris Plan: Follow-up with Cardiology (5) Diabetes: Code(s): E11.9 - Type 2 diabetes mellitus without complications Plan: ADA diet regular physical activity discussed with the patient he will continue metformin and Jardiance and was advised to start monitoring his fasting blood glucose. Follow-up in 1 month Orders: Orders CA echo transthoracic complete Today I35.1 - Nonrheumatic aortic (valve) insufficiency Comprehensive [place]. Panel Fast Today E78.5 - Hyperlipidemia, unspecified, I10 - Essential (primary) hypertension, I25.10 - Atherosclerotic heart disease of [place] coronary artery without angina pectoris, I35.1 - Nonrheumatic aortic (valve) insufficiency Microalbumin, Random (w Creat) Today E78.5 - Hyperlipidemia, unspecified, I10 - Essential (primary) hypertension, I25.10 - Atherosclerotic heart disease of [place] coronary artery without angina pectoris, I35.1 - Nonrheumatic aortic (valve) insufficiency Lipid Panel Today E78.5 - Hyperlipidemia, unspecified, I10 - Essential (primary) hypertension, I25.10 - Atherosclerotic heart disease of [place] coronary artery without angina pectoris, I35.1 - Nonrheumatic aortic (valve) insufficiency Complete Blood Count Auto Diff Today E78.5 - Hyperlipidemia, unspecified, I10 - Essential (primary) hypertension, I25.10 - Atherosclerotic heart disease of [place] coronary artery without angina pectoris, I35.1 - Nonrheumatic aortic (valve) insufficiency PSA,Total (Free>4and<10) Today E78.5 - Hyperlipidemia, unspecified, I10 - Essential (primary) hypertension, I25.10 - Atherosclerotic heart disease of [place] coronary artery without angina pectoris, I35.1 - Nonrheumatic aortic (valve) insufficiency Coding Level of Care Code Est Pt Level 4 (68840) Diagnoses Aortic valve insufficiency I35.1 Essential hypertension I10 Hyperlipidemia LDL goal <70 E78.5 Coronary atherosclerosis I25.10 Diabetes E11.9
[2023-04-20 14:06] VITALS: BP 110/52; PULSE 67; O2SAT 96; BMI 26.5
== END 2023-04-20 15:18 | disposition home or self-care (01) ==
PROVIDERS: PCP Internal Medicine; Visit Provider Internal Medicine
DX: I35.1 Nonrheumatic aortic (valve) insufficiency (principal); E11.9 Type 2 diabetes mellitus without complications; I10 Essential (primary) hypertension; E78.5 Hyperlipidemia, unspecified; I25.10 Atherosclerotic heart disease of native coronary artery without angina pectoris
CPT/HCPCS: 99214

== ENCOUNTER 2023-04-20 14:50 | Outpatient (REF) | payer OTHER, SELFPAY ==
[2023-04-20 16:10] LABS: MANUAL DIFF FLAG NO
[2023-04-20 16:17] LABS: Basophils Absolute Auto 0.1 X10*3/uL (0.0-0.2); Basophils Percent Auto 1.3 % (0-2); Eosinophils Absolute Auto 0.7 X10*3/uL (0.0-0.4); Eosinophils Percent Auto 6.7 % (0-4); Hematocrit 44.1 % (42.0-52.0); Hemoglobin 14.8 g/dl (14.0-18.0); Imm Gran Abs Auto 0.04 X10*3/uL (0.00-0.03); Imm Gran Pct Auto 0.4 % (0.0-0.4); Lymphocytes Absolute Auto 2.8 X10*3/uL (1.2-4.9); Lymphocytes Percent Auto 27.4 % (20-40); Mean Corpuscular HGB Conc 33.6 g/dl (31.0-36.0); Mean Corpuscular Hemoglobin 29.1 pg (27.0-33.0); Mean Corpuscular Volume 86.8 fL (80.0-98.0); Mean Platelet Volume 9.4 fL (9.4-12.4); Monocytes Absolute Auto 0.9 X10*3/uL (0.1-1.2); Monocytes Percent Auto 8.8 % (2-11); Neutrophils Absolute Auto 5.6 x10*3/uL (2.0-8.3); Neutrophils Percent Auto 55.4 % (45-73); Platelet Count 274 X10*3/uL (160-400); Red Blood Count 5.08 X10*6/uL (4.60-5.80); Red Cell Distribution Width 13.2 % (11.0-16.0); White Blood Count 10.2 X10*3/uL (4.8-10.8)
[2023-04-20 16:37] LABS: Alanine Aminotransferase 22 U/L (0-40); Albumin Level 4.6 g/dL (3.5-5.0); Alkaline Phosphatase 98 U/L (39-117); Anion Gap 11 (12-20); Aspartate Amino Transferase 23 U/L (5-37); Blood Urea Nitrogen 13 mg/dL (9-16); Calcium 9.5 mg/dL (8.4-10.2); Carbon Dioxide 28 mmol/L (22-29); Chloride 105 mmol/L (96-108); Cholesterol 128 mg/dL (<200); Estimated Glomerular Filt Rate > 60; Glucose Fasting 136 mg/dL (60-99); HDL Cholesterol 35 mg/dL (>40); LDL Cholesterol Calculated 42 mg/dL (<100); Potassium 4.8 mmol/L (3.3-5.1); Sodium 139 mmol/L (135-145); Total Protein 7.3 g/dL (6.5-8.0); Triglycerides 257 mg/dL (<150)
[2023-04-20 16:47] LABS: Creatinine Urine 90.69 mg/dL; Microalbum/Creatinine Ratio Ur 16.5 ug/mg cr (<30)
[2023-04-20 17:03] LABS: PSA,Total (Free>4and<10) 1.85 ng/mL (0.00-4.00)
== END 2023-04-20 14:51 | disposition home or self-care (01) ==
LOC: HO.HMGCLDS 14:50
PROVIDERS: PCP Internal Medicine; Visit Provider Internal Medicine
DX: I35.1 Nonrheumatic aortic (valve) insufficiency (principal); I10 Essential (primary) hypertension; E78.5 Hyperlipidemia, unspecified; I25.10 Atherosclerotic heart disease of native coronary artery without angina pectoris
CPT/HCPCS: 36415; 80053; 80061; 82043; 82570; 84153; 85025

== ENCOUNTER → 2023-05-21 16:01 | Outpatient (REF) | payer OTHER, SELFPAY ==
--- NOTE | 2023-05-21 16:04 | CA_ITS ---
Transthoracic Echocardiogram Patient (Last, First, Middle): Dean Jenkins, Gender: Male Date of : 1960 Age: 62 Procedure Date: 05/21/2023 Procedure Type: Transthoracic Echocardiogram Location: OP Height: 172.72 cm Weight: 78.93 kg BSA: 1.93 m2 Heart Rate: bpm BP: 122 / 60 mmHg Development Consultant: ALFREDO Referring MD: Camila Rosales MD Adult Nurse Practitioner: Víctor Baumann MD Symptoms: I35.1 - Nonrheumatic aortic (valve) insufficiency Study Quality: Adequate ECG Rhythm: Sinus Conclusions: - 1. Normal LV ejection fraction of 60 65% with mild LVH with impaired relaxation filling pattern 2. At least moderate aortic regurgitation 3. Normal RV systolic pressure 4. No pericardial effusion 5. Recommend BRAD to evaluate for ventricular septum and aortic valve Findings Left Ventricle Normal left ventricular size and systolic function. There is mildly increased left ventricular wall thickness. The visually estimated ejection fraction is between 60-65%. Spectral Doppler is indicative of an impaired relaxation filling pattern. On certain views there appears to be a color flow across the ventricular septum consistent with possible perimembranous VSD. Would recommend BRAD to further evaluate Right Ventricle Normal right ventricular cavity size and systolic function. Atria The left atrium is normal in size. There is no evidence of interatrial shunt. The right atrium is normal in size. Aortic Valve The aortic valve structure and function is likely normal. There is no aortic valve stenosis. There is moderate aortic valve regurgitation. on parasternal long-axis view there appears to be at least moderate to severe aortic regurgitation, by quantification, aortic regurgitation appears to be more moderate with ERO of 0.3 centimeters sq Mitral Valve Normal mitral valve structure and function. There is trace mitral valve regurgitation. There is no mitral valve stenosis. Pulmonic Valve The pulmonic valve is likely normal. Tricuspid Valve Normal tricuspid valve structure. There is mild tricuspid valve regurgitation. The right ventricular systolic pressure is normal. The right ventricular systolic pressure is 28 mmHg. Normal right atrial pressure. There is no evidence of pulmonary hypertension. Great Vessels All visible segments of the aorta are normal in size. The pulmonary artery was not well visualized. There is no dilatation of the ascending aorta. Venous The inferior vena cava is normal in size and collapses greater than 50% with inspiration. Pericardium/Pleural There is no evidence of pericardial effusion. Prior Study Comparison Changes noted compared to prior study. aortic regurgitation appears to be moderate Recommendations, Care & Conclusions Recommend a BRAD. Measurements 2D Linear Measurements IVSd: 1.30 0.6-0.9/0.6-1.0 cm LVIDd: 5.61 3.9-5.3/4.2-5.9 cm LVIDd Index: 2.91 2.4-3.2/2.2-3.1 cm/m2 LVIDs: 3.21 2.0-3.6 cm LVPWd: 1.35 0.7-1.1 cm Ao Root: 3.20 2.1-3.5 cm LA Diam: 4.00 2.7-3.8/3.0-4.0 cm LAIDs Index: 2.07 1.5-2.3 cm/m2 LV Mass: 402.48 67-162/88-224 g LV Mass Index: 208.54 43-95/49-115 g/m2 LVOT Diam: 2.20 3.0+(-)1.3 cm Mitral Valve MV Pk E: 0.82 MV PK A: 0.71 MV Decel Time: 176.00 E/A: 1.20 E'Lateral: 7.18 E'Medial: 11.00 E/E' Med: 7.50 E/E' Lat: 11.50 PHT: 52.00 MVA PHT: 4.23 Decel [place]: 4.67 Aortic Valve AoV Pk Ezio: 1.45 AoV Mn Ezio: 0.98 AoV VTI: 0.31 AoV Pk Grad: 8.00 Aov Mn Grad: 4.00 SALVATORE Cont.VTI: 3.58 AI Pk Ezio: 3.18 AI VTI: 1.65 AI [place]: 2.54 LVOT LVOT Pk Ezio: 1.26 LVOT Mn Ezio: 0.72 LVOT VTI: 0.29 LVOT Pk Grad: 6.00 LVOT Mn Grad: 3.00 LVOT Diam: 2.20 LVOT Area: 3.80 Diastolic Function MV Pk E: 0.82 MV Pk A: 0.71 E/A: 1.20 E'Medial: 11.00 E/E' Med: 7.50 E' Laterial: 7.18 E/E' Lat: 11.50 Right Ventricle TAPSE (mm): 27.00 TVS' Ezio: 14.00 Tricuspid Valve TR Pk Ezio: 2.48 TR Pk Grad: 25.00 RA Press: 3.00 RVSP: 28.00 Great Vessels Aorta Ao Root-2D: 3.20 2.0-3.7 cm Ao Asc: 3.40 2.1-3.4 cm Pulmonary Valve PV Pk Ezio: 1.19 Peak PV Grad: 6.00 Shunting QP:QS: 0.60 Updated in Other Vendor System with Status of Final Víctor Baumann MD electronically signed on 05/22/2023 12:38:10 PM with status of Final
== END ==
LOC: HO.CARD 16:01
PROVIDERS: PCP Internal Medicine; Visit Provider Internal Medicine
DX: I35.1 Nonrheumatic aortic (valve) insufficiency (principal)
CPT/HCPCS: 93306

== ENCOUNTER → 2023-05-21 16:04 | Outpatient (BNV) | payer OTHER, SELFPAY | PROVIDERS: PCP Internal Medicine; Visit Provider Internal Medicine Cardiovascular Disease | DX: I35.1 Nonrheumatic aortic (valve) insufficiency (principal); I36.1 Nonrheumatic tricuspid (valve) insufficiency | CPT/HCPCS: 93306 ==

== ENCOUNTER 2023-05-25 14:06 | Outpatient (AMB) | payer OTHER, SELFPAY ==
[2023-05-25 14:13] VITALS: BP 112/52; PULSE 62; O2SAT 96; BMI 27.0
--- NOTE | 2023-05-25 14:13 | MHC.PC.OV ---
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 Accompanied by: Self / Same As Patient Allergies No Known Allergies Allergy (Verified 05/25/23 14:13) Medication List - Last Reconciled 05/25/23 by Camila Rosales MD amlodipine 2.5 mg PO DAILY aspirin 81 mg PO DAILY atorvastatin 80 mg PO BEDTIME blood sugar diagnostic (FreeStyle Lite Strips) Test blood sugar twice a day blood-glucose meter (FreeStyle [place] Lite kit) As directed clopidogrel 75 mg PO DAILY 90 days empagliflozin (Jardiance) 10 mg PO DAILY gabapentin 300 mg PO BEDTIME melatonin 10 mg PO BEDTIME PRN metformin 500 mg PO BIDWMEAL metoprolol succinate ER 25 mg PO DAILY miscellaneous medical supply (Blood Pressure Cuff) As directed Tobacco use date assessed: 04/20/23 Dental Screening Dental Screen Date: 05/25/23 Did you have a dental visit in the last 12 months?: Yes Did you have a dental problem in the last 6 months where you did not have access to dental care?: No Was dental information given to patient?: Patient has dentist HPI 1 Month follow up DM HPI Details Pt presents for f/u DM 2. Patient declined checking his glucose readings. Pt denies polyuria, hypoglycemia. pt c/o painful neuropathy getting worse at night. 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 Dean Partida, Marjorie Tovar, Redd Ortega and colleagues, with an educational pranay from [employer]. Review of Systems Const All systems reviewed & are unremarkable except as noted in HPI and below Reports no additional complaints Eyes Reports no additional complaints ENT Reports no additional complaints Card Reports no additional complaints Resp Reports no additional complaints GI Reports no additional complaints Reports no additional complaints Physical exam (Primary Care) Vital Signs: Last Vital Signs Pulse 62 05/25/23 14:13 BP 112/52 L 05/25/23 14:13 Pulse Ox 96 05/25/23 14:13 Oxygen Delivery Method Room Air 05/25/23 14:13 BMI result Body Mass Index 27.0 Tobacco/Smoking Status: Tobacco use Status Tobacco use date assessed 04/20/23 05/25/23 14:14 Patient Tobacco Use Status Current everyday Tobacco 05/25/23 14:14 Tobacco use type Cigarette 05/25/23 14:14 e-Cigarette/Vaping Use Never Used 05/25/23 14:14 Thrive Assessment: Date of Thrive Assessment Date Thrive assessed 04/12/23 05/25/23 14:14 Const General: no acute distress HENMT Face and sinus: Yes normal facial exam Eyes General: appearance normal, both eyes and all related structures Neck Neck: Yes no lymphadenopathy and Yes supple Resp Effort & Inspection: normal respiratory effort Auscultation: clear to auscultation bilaterally Cardio Rhythm: regular rhythm Heart sounds: S1 normal heart sound present and S2 normal heart sound present GI Inspection: Yes normal to inspection Palpation (GI): Soft to palpation Extrem General: Yes no clubbing, cyanosis or edema Results AMB Random Glucose (hemocue) AMB Random Glucose (hemocue) 165 mg/dL Last Edit by Bar Cardona CMA on 05/25/23 14:47 Assessment and Plan Assessment & Plan (1) Diabetes: Code(s): E11.9 - Type 2 diabetes mellitus without complications Plan: A1c is down to 7.1, ADA diet regular physical activity discussed with the patient. He will continue metformin and Jardiance and follow-up in 2 months. Patient will be referred to leather tacker for diabetic eye exam (2) Heart murmur: Comment: Echo mild AI, 2020,, ECHO 05/26 LVEF 60-65%, LVH, moderate AI, ? VSD, BRAD recommended , pt declined Code(s): R01.1 - Cardiac murmur, unspecified Plan: Follow-up with Cardiology next month (3) Coronary atherosclerosis: Comment: S/P 3 STEVEN : L main, LAD, diagonal 04/24, remaining dominant R coronary 80% stenosis , pt refused CABG, F/U Dr. Cuello Code(s): I25.10 - Atherosclerotic heart disease of [place] coronary artery without angina pectoris Plan: Continue metoprolol and ASA (4) Hyperlipidemia LDL goal <70: Code(s): E78.5 - Hyperlipidemia, unspecified Plan: Continue statin (5) Neuropathy: Comment: f/u podiatry EMG at [facility] 02/24 , pt will get report Code(s): G62.9 - Polyneuropathy, unspecified Plan: start Gabapentin 300 mg QHS Orders: Orders AMB Hemoglobin A1c Today Z13.9 - Encounter for screening, unspecified AMB Random Glucose (hemocue) Today E11.9 - Type 2 diabetes mellitus without complications Referrals Ophthalmology Referral E11.9 - Type 2 diabetes mellitus without complications Medications: New gabapentin 300 mg PO BEDTIME 90 caps 0RF Coding Level of Care Code Est Pt Level 4 (20483) Diagnoses Diabetes E11.9 Heart murmur R01.1 Coronary atherosclerosis I25.10 Hyperlipidemia LDL goal <70 E78.5 Neuropathy G62.9
== END 2023-05-25 14:55 | disposition home or self-care (01) ==
PROVIDERS: PCP Internal Medicine; Visit Provider Internal Medicine
DX: E11.42 Type 2 diabetes mellitus with diabetic polyneuropathy (principal); R01.1 Cardiac murmur, unspecified; I25.10 Atherosclerotic heart disease of native coronary artery without angina pectoris; E78.5 Hyperlipidemia, unspecified; G62.9 Polyneuropathy, unspecified
CPT/HCPCS: 82948; 99214

== ENCOUNTER 2023-12-19 15:31 | Outpatient (REF) | payer OTHER, SELFPAY ==
[2023-12-19 16:00] LABS: MANUAL DIFF FLAG NO
[2023-12-19 17:30] LABS: Basophils Absolute Auto 0.1 X10*3/uL (0.0-0.2); Basophils Percent Auto 1.5 % (0-2); Eosinophils Absolute Auto 0.7 X10*3/uL (0.0-0.4); Eosinophils Percent Auto 7.4 % (0-4); Hemoglobin 15.5 g/dl (14.0-18.0); Imm Gran Abs Auto 0.04 X10*3/uL (0.00-0.03); Imm Gran Pct Auto 0.5 % (0.0-0.4); Lymphocytes Percent Auto 22.8 % (20-40); Mean Corpuscular HGB Conc 34.4 g/dl (31.0-36.0); Mean Corpuscular Hemoglobin 29.9 pg (27.0-33.0); Mean Corpuscular Volume 86.9 fL (80.0-98.0); Mean Platelet Volume 9.4 fL (9.4-12.4); Monocytes Absolute Auto 0.6 X10*3/uL (0.1-1.2); Monocytes Percent Auto 7.2 % (2-11); Neutrophils Absolute Auto 5.3 x10*3/uL (2.0-8.3); Neutrophils Percent Auto 60.6 % (45-73); Platelet Count 249 X10*3/uL (160-400); Red Blood Count 5.18 X10*6/uL (4.60-5.80); Red Cell Distribution Width 13.6 % (11.0-16.0); White Blood Count 8.8 X10*3/uL (4.8-10.8)
[2023-12-19 18:06] LABS: Creatinine Urine 95.15 mg/dL; Microalbum/Creatinine Ratio Ur 14.7 ug/mg cr (<30)
[2023-12-19 18:10] LABS: Alanine Aminotransferase 18 U/L (0-40); Albumin Level 4.4 g/dL (3.5-5.0); Alkaline Phosphatase 86 U/L (39-117); Anion Gap 16 (12-20); Aspartate Amino Transferase 19 U/L (5-37); Bilirubin Total 0.7 mg/dL (0.0-1.0); Blood Urea Nitrogen 13 mg/dL (9-16); Calcium 9.3 mg/dL (8.4-10.2); Carbon Dioxide 22 mmol/L (22-29); Chloride 105 mmol/L (96-108); Cholesterol 110 mg/dL (<200); Estimated Glomerular Filt Rate > 60; Glucose Fasting 118 mg/dL (60-99); HDL Cholesterol 33 mg/dL (>40); LDL Cholesterol Calculated 28 mg/dL (<100); Sodium 139 mmol/L (135-145); Total Protein 6.9 g/dL (6.5-8.0); Triglycerides 248 mg/dL (<150)
[2023-12-19 18:21] LABS: Estimated Average Glucose 117 mg/dL; Hemoglobin A1c % 5.7 % (<6.0)
== END 2023-12-19 15:32 | disposition home or self-care (01) ==
LOC: HO.LAB 15:31
PROVIDERS: PCP Internal Medicine; Visit Provider Internal Medicine
DX: E11.9 Type 2 diabetes mellitus without complications (principal); I10 Essential (primary) hypertension; E78.5 Hyperlipidemia, unspecified
CPT/HCPCS: 36415; 80053; 80061; 82043; 82570; 83036; 85025

== ENCOUNTER 2023-12-21 14:04 | Outpatient (AMB) | payer OTHER, SELFPAY ==
--- NOTE | 2023-12-21 14:08 | MHC.PC.OV ---
Vital Signs 12/21/23 14:09 Height 5 ft 8 in Weight 179 lb BMI 27.2 BP 118/56 L Blood Pressure Location Rt brachial Position Sitting Pulse 62 Pulse Source Pulse Oximeter Pulse Oximetry (%) 96 Oxygen Delivery Method Room Air Intake Visit Reasons: DM followup Intake Note: Pt is here today for a follow up visit on DM and labs. Allergies No Known Allergies Allergy (Verified 12/21/23 14:11) Medication List - Last Reconciled 12/21/23 by Camila Rosales MD amlodipine 2.5 mg PO DAILY aspirin 81 mg PO DAILY atorvastatin 80 mg PO BEDTIME blood sugar diagnostic (FreeStyle Lite Strips) Test blood sugar twice a day blood-glucose meter (FreeStyle [place] Lite kit) As directed clopidogrel 75 mg PO DAILY empagliflozin (Jardiance) 10 mg PO DAILY gabapentin 300 mg PO BEDTIME melatonin 10 mg PO BEDTIME PRN metformin 500 mg PO BIDWMEAL metoprolol succinate ER 25 mg PO DAILY miscellaneous medical supply (Blood Pressure Cuff) As directed Tobacco use date assessed: 12/21/23 Fall risk assessment: No Falls in past year Last assessed Fall Risk: 12/21/23 Dental Screening Dental Screen Date: 12/21/23 Did you have a dental visit in the last 12 months?: No Did you have a dental problem in the last 6 months where you did not have access to dental care?: No Was dental information given to patient?: Patient declined HPI DM followup HPI Details Pt presents for f/u DM 2, hyperlipid, HTN, stable on meds. 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 1. Little interest or pleasure in doing things: not at all 2. Feeling down, depressed, or hopeless: not at all 3. Trouble falling or staying asleep, or sleeping too much: not at all 4. Feeling tired or having little energy: not at all 5. Poor appetite or overeating: not at all 6. Feeling bad about yourself - or that you are a failure or have let yourself or your family down: not at all 7. Trouble concentrating on things, such as reading the newspaper or watching television: not at all 8. Moving or speaking so slowly that other people could have noticed. Or the opposite - being so fidgety or restless that you have been moving around a lot more than usual: not at all 9. Thoughts that you would be better off or of hurting yourself in some way: not at all Total score: 0 Depression Screening Interpretation: Negative Depression Screening Done: Yes Source: Developed by Drs. Dean Partida, Marjorie Tovar, Redd Ortega and colleagues, with an educational pranay from [employer]. Thrive Questionnaire Date Thrive assessed: 12/21/23 I am a: Patient What is your living situation today?: I have a steady place to live Within the past 12 months, did the food you bought not last and you didn't have the money to get more?: Never true Within the past 12 months, did you worry whether your food would run out before you got money to buy more?: Never true Do you have trouble paying for medicines?: No Do you have trouble getting transportation to medical appointments?: No Do you have trouble paying your heating and electricity bill?: No Do you have trouble taking care of your child, family member or friend?: No Do you have trouble with day-to-day activities such as bathing, preparing meals, shopping, managing finances, etc.?: No Are you currently unemployed and looking for a job?: No Are you interested in more education?: No Please select the resources that you would like help with: Housing/Prison Currently or been in a relationship where the following occur: No concerns reported THRIVE Score: 0 AUDIT C Alcohol Use Questionnaire (AUDIT-C) 1. How often do you have a drink containing alcohol?: 2-4 times a month 2. How many drinks containing alcohol do you have on a typical day when you are drinking?: 1 or 2 3. How often do you have six or more drinks on one occasion?: Never Total Score: 2 ERROL-7 AMB Questionnaire ERROL-7 Date ERROL - 7 assessed: 12/21/23 Feeling nervous, anxious, or on edge: 0 = Not at all Not being able to stop or control worryin = Not at all Worrying too much about different things: 0 = Not at all Trouble relaxin = Not at all Being so restless that it is hard to sit still: 0 = Not at all Becoming easily annoyed or irritable: 0 = Not at all Feeling afraid as if something awful might happen: 0 = Not at all Total ERROL-7 score (0-4 normal; 5-9 mild; 10-14 moderate; 15-21 severe): 0 Source: Developed by Drs. Dean Partida, Marjorie Tovar, Redd Ortega and colleagues, with an educational pranay from [employer]. Review of Systems Const All systems reviewed & are unremarkable except as noted in HPI and below Reports no additional complaints Eyes Reports no additional complaints ENT Reports no additional complaints Card Reports no additional complaints Resp Reports no additional complaints GI Reports no additional complaints Reports no additional complaints Physical exam (Primary Care) Vital Signs: Last Vital Signs Pulse 62 12/21/23 14:09 BP 118/56 L 12/21/23 14:09 Pulse Ox 96 12/21/23 14:09 Oxygen Delivery Method Room Air 12/21/23 14:09 BMI result Body Mass Index 27.2 Tobacco/Smoking Status: Tobacco use Status Tobacco use date assessed 12/21/23 12/21/23 14:14 Patient Tobacco Use Status Current everyday Tobacco 12/21/23 14:10 Tobacco use type Cigarette 12/21/23 14:10 e-Cigarette/Vaping Use Never Used 12/21/23 14:10 PHQ-9: PHQ-9 Score PHQ-9: Total score 0 12/21/23 14:46 Depression Screening Interpretation: Negative Thrive Assessment: Date of Thrive Assessment Date Thrive assessed 12/21/23 12/21/23 14:16 Currently or been in a relationship where the following occur: No concerns reported Const General: no acute distress HENMT Head: Yes normal to inspection Face and sinus: Yes normal facial exam Mouth: Normal oral and palatal mucosa present Eyes General: appearance normal, both eyes and all related structures Neck Neck: Yes no lymphadenopathy and Yes supple Resp Effort & Inspection: normal respiratory effort Auscultation: clear to auscultation bilaterally Cardio Rhythm: regular rhythm Heart sounds: S1 normal heart sound present and S2 normal heart sound present GI Inspection: Yes normal to inspection Palpation (GI): Soft to palpation Percussion: Yes normal to percussion Auscultation: normal bowel sounds Assessment and Plan Assessment & Plan (1) Dysplastic nevi: Code(s): D23.9 - Other benign neoplasm of skin, unspecified Plan: refer to [facility] (2) Aortic valve insufficiency: Comment: Echo 02/22 Code(s): I35.1 - Nonrheumatic aortic (valve) insufficiency Plan: check ECHO (3) Diabetes: Code(s): E11.9 - Type 2 diabetes mellitus without complications Plan: A1c is 5.7. Continue ADA diet Jardiance and metformin follow-up in 6 months with a fasting labs before (4) Heart murmur: Comment: Echo mild AI, 2020,, ECHO 05/26 LVEF 60-65%, LVH, moderate AI, ? VSD, BRAD recommended , pt declined Code(s): R01.1 - Cardiac murmur, unspecified Plan: Obtain echo to follow-up on aortic regurgitation (5) Essential hypertension: Code(s): I10 - Essential (primary) hypertension Plan: Continue current medications (6) Hyperlipidemia LDL goal <70: Code(s): E78.5 - Hyperlipidemia, unspecified Plan: Continue atorvastatin Orders: Orders CA echo transthoracic complete Today R01.1 - Cardiac murmur, unspecified Lipid Panel 6 Months E78.5 - Hyperlipidemia, unspecified, I10 - Essential (primary) hypertension Complete Blood Count Auto Diff 6 Months E78.5 - Hyperlipidemia, unspecified, I10 - Essential (primary) hypertension Hemoglobin A1c 6 Months E78.5 - Hyperlipidemia, unspecified, I10 - Essential (primary) hypertension Comprehensive [place]. Panel Fast 6 Months E78.5 - Hyperlipidemia, unspecified, I10 - Essential (primary) hypertension Microalbumin, Random (w Creat) 6 Months E78.5 - Hyperlipidemia, unspecified, I10 - Essential (primary) hypertension Referrals Dermatology Referral D23.9 - Other benign neoplasm of skin, unspecified Coding Level of Care Code Est Pt Level 4 (89472) Diagnoses Dysplastic nevi D23.9 Aortic valve insufficiency I35.1 Diabetes E11.9 Heart murmur R01.1 Essential hypertension I10 Hyperlipidemia LDL goal <70 E78.5
[2023-12-21 14:09] VITALS: BP 118/56; PULSE 62; O2SAT 96; BMI 27.2
== END 2023-12-21 15:50 | disposition home or self-care (01) ==
PROVIDERS: PCP Internal Medicine; Visit Provider Internal Medicine
DX: E11.69 Type 2 diabetes mellitus with other specified complication (principal); D23.9 Other benign neoplasm of skin, unspecified; I35.1 Nonrheumatic aortic (valve) insufficiency; R01.1 Cardiac murmur, unspecified; I10 Essential (primary) hypertension; E78.5 Hyperlipidemia, unspecified
CPT/HCPCS: 99214

== ENCOUNTER → 2024-01-09 14:00 | Outpatient (REF) | payer OTHER, SELFPAY ==
--- NOTE | 2024-01-09 14:03 | CA_ITS ---
Transthoracic Echocardiogram Patient (Last, First, Middle): Dean Jenkins, Gender: Male Date of : 1960 Age: 63 Procedure Date: 01/09/2024 Procedure Type: Transthoracic Echocardiogram Location: OP Height: 172.72 cm Weight: 79.83 kg BSA: 1.94 m2 Heart Rate: bpm BP: 130 / 50 mmHg [employer] Director: TO Referring MD: Camila Rosales MD Configuration Specialist: Víctor Baumann MD Symptoms: R01.1 - Cardiac murmur, unspecified Study Quality: Adequate ECG Rhythm: Sinus Conclusions: - 1. Normal LV ejection fraction at 55-60% 2. Moderate aortic regurgitation 3. No gross pericardial effusion Findings Left Ventricle Normal left ventricular size, thickness, and systolic function. The visually estimated ejection fraction is between 55-60%. Spectral Doppler is indicative of a normal filling pattern. Right Ventricle Normal right ventricular cavity size and systolic function. Atria The left atrium is likely dilated. There is no evidence of interatrial shunt. The right atrium is normal in size. Aortic Valve The aortic valve structure and function is likely normal. There is no aortic valve stenosis. There is moderate aortic valve regurgitation. Mitral Valve Normal mitral valve structure and function. There is trace mitral valve regurgitation. There is no mitral valve stenosis. Pulmonic Valve The pulmonic valve is likely normal. Tricuspid Valve Likely normal tricuspid valve structure and function. There is trace tricuspid valve regurgitation. Tricuspid regurgitation envelope is inadequate for calculation of right ventricular systolic pressure. Normal right atrial pressure. Great Vessels The pulmonary artery was not well visualized. There is no dilatation of the ascending aorta measuring 3.20 cm. Venous The inferior vena cava is normal in size and collapses greater than 50% with inspiration. Pericardium/Pleural There is no evidence of pericardial effusion. Prior Study Comparison No significant change compared to prior study dated: 05/21/2023. Recommendations, Care & Conclusions Consider a BRAD if clinically appropriate. Measurements 2D Linear Measurements IVSd: 1.72 0.6-0.9/0.6-1.0 cm LVIDd: 5.12 3.9-5.3/4.2-5.9 cm LVIDd Index: 2.64 2.4-3.2/2.2-3.1 cm/m2 LVIDs: 3.45 2.0-3.6 cm LVPWd: 1.21 0.7-1.1 cm LA Diam: 3.80 2.7-3.8/3.0-4.0 cm LAIDs Index: 1.96 1.5-2.3 cm/m2 LV Mass: 402.94 67-162/88-224 g LV Mass Index: 207.70 43-95/49-115 g/m2 LVOT Diam: 2.50 3.0+(-)1.3 cm 2D Systolic Function EF 4C: 57.80 >55% EF 2C: 55.80 >55% EF BiP: 55.80 >55% Mitral Valve MV Pk E: 0.79 MV PK A: 0.55 MV Decel Time: 177.00 E/A: 1.40 E'Lateral: 5.11 E'Medial: 4.57 E/E' Med: 17.30 E/E' Lat: 15.50 PHT: 52.00 MVA PHT: 4.23 Decel [place]: 4.47 Aortic Valve AoV Pk Ezio: 1.74 AoV Mn Ezio: 1.19 AoV VTI: 0.42 AoV Pk Grad: 12.00 Aov Mn Grad: 6.00 SALVATORE Cont.VTI: 4.56 AI Pk Ezio: 3.42 AI [place]: 2.59 LVOT LVOT Pk Ezio: 1.76 LVOT Mn Ezio: 1.19 LVOT VTI: 0.39 LVOT Pk Grad: 12.00 LVOT Mn Grad: 7.00 LVOT Diam: 2.50 LVOT Area: 4.91 Diastolic Function MV Pk E: 0.79 MV Pk A: 0.55 E/A: 1.40 E'Medial: 4.57 E/E' Med: 17.30 E' Laterial: 5.11 E/E' Lat: 15.50 Right Ventricle TAPSE (mm): 25.60 TVS' Ezio: 15.60 Tricuspid Valve RA Press: 3.00 Great Vessels Aorta Sinus of Valsalva: 3.75 2.0-3.5 cm Ao Asc: 3.20 2.1-3.4 cm Shunting QP:QS: 0.20 Updated in Other Vendor System with Status of Final Víctor Baumann MD electronically signed on 01/09/2024 4:03:26 PM with status of Final
== END ==
LOC: HO.CARD 14:00
PROVIDERS: PCP Internal Medicine; Visit Provider Internal Medicine
DX: R01.1 Cardiac murmur, unspecified (principal)
CPT/HCPCS: 93306

== ENCOUNTER → 2024-01-09 14:03 | Outpatient (BNV) | payer OTHER, SELFPAY | PROVIDERS: PCP Internal Medicine; Visit Provider Internal Medicine Cardiovascular Disease | DX: I35.1 Nonrheumatic aortic (valve) insufficiency (principal) | CPT/HCPCS: 93306 ==

== ENCOUNTER 2024-06-26 14:28 | Outpatient (REF) | payer OTHER, SELFPAY ==
[2024-06-26 16:43] LABS: MANUAL DIFF FLAG NO
[2024-06-26 16:53] LABS: Basophils Absolute Auto 0.1 X10*3/uL (0.0-0.2); Basophils Percent Auto 1.3 % (0-2); Eosinophils Absolute Auto 0.6 X10*3/uL (0.0-0.4); Eosinophils Percent Auto 6.6 % (0-4); Hematocrit 45.4 % (42.0-52.0); Hemoglobin 15.4 g/dl (14.0-18.0); Imm Gran Abs Auto 0.03 X10*3/uL (0.00-0.03); Imm Gran Pct Auto 0.3 % (0.0-0.4); Lymphocytes Absolute Auto 2.5 X10*3/uL (1.2-4.9); Lymphocytes Percent Auto 28.1 % (20-40); Mean Corpuscular HGB Conc 33.9 g/dl (31.0-36.0); Mean Corpuscular Hemoglobin 29.2 pg (27.0-33.0); Mean Corpuscular Volume 86.1 fL (80.0-98.0); Mean Platelet Volume 9.5 fL (9.4-12.4); Monocytes Absolute Auto 0.8 X10*3/uL (0.1-1.2); Monocytes Percent Auto 8.5 % (2-11); Neutrophils Absolute Auto 4.8 x10*3/uL (2.0-8.3); Neutrophils Percent Auto 55.2 % (45-73); Platelet Count 242 X10*3/uL (160-400); Red Blood Count 5.27 X10*6/uL (4.60-5.80); Red Cell Distribution Width 13.2 % (11.0-16.0); White Blood Count 8.8 X10*3/uL (4.8-10.8)
--- OUTSIDE RECORDS SUMMARY | 2024-06-26 17:10 | XMS_ITS | Data Portability ---
Author Organization JAZZ Colon [facility], [address] Address [address] [place] [address] Assessment No assessment recorded. Plan of Treatment Reminders Order Date Submit Date Provider Last Modified By Organization Details Last Modified Time Details Appointments None recorded. Lab culture, wound [facility]22 [facility] [address] [place] [address], [place], [address], 3 12:05:57 Referral bleach range operator referral 2022 023 6 [facility], [address] [place] [address], [address], 3 10:06:53 Procedures None recorded. Surgeries None recorded. Imaging None recorded. Medication Orders cephalexin 500 mg capsule 2022 023 [id number], [address] [place], [address], 3 16:43:02 Patient TargetsNo targets recorded. Patient Instructions Encounter Date Encounter Id Patient Instructions Last Modified By Organization Details Last Modified Time 06/28/2022 [id number] paronychia: care instructions Not available 06/28/2022 19:39:13 Recommend warm soaks in Epsom salts 2-3 times daily. Can apply sterile band aids as needed, can also leave open to air if no longer draining. Complete the course of antibiotics. You will receive a call if your antibiotic needs to be changed after the wound culture is reviewed. Not available 06/28/2022 19:39:12 08/29/2022 [id number] contusion: care instructions [email or web address] Not available 08/29/2022 17:18:06 Apply heat to th e area - that will help the bruise reabsorb You an put Arnica Cream on the bruise that will help it get better a little quicker, this can be purchased over the counter at the pharmacy. [email or web address] Not available 08/29/2022 17:18:05 Reason for Referral Associate Dentist Referral for Cont usion of right foot Referring Physician: Teresa Leon, Urgent Care, Encounter Date: 08/29/2022 Results Created Date Observation Date Name Description Value Unit Range Abnormal Flag Note LastModifiedBy Organization Detail LastModifiedTime 06/29/19 23 07/04/2022 ANAER OBIC AND AEROB IC CULTU RE anaerobic culture FINAL REPORT Not Available [facility] ([facility]) [address] [place], [address], 07/05/2022 14:06:56 06/29/19 23 07/04/2022 ANAER OBIC AND AEROB IC CULTU RE result 1 COMMEN T No anaer obic growt h in 72 hours . Not Available [facility] ([facility]) [address] [place], [address], 07/05/2022 14:06:56 06/29/19 23 07/05/2022 ANAER OBIC AND AEROB IC CULTU RE aerobic culture FINAL REPORT abnormal Not Available [facility] ([facility]) [address] [place], [address], 07/05/2022 14:06:56 06/29/19 23 07/05/2022 ANAER OBIC AND AEROB IC CULTU RE result 1 STAPHY LOCOCC US AUREUS abnormal Based on susce ptibi lity to oxaci llin this isola te would be susce ptibl e to: *Peni cilli nase- stabl e penic illin s, such as: Cloxa cilli n, Diclo xacil hui, Nafci llin *Beta -lact am combi natio n agent s, such as: Amoxi cilli n-cla vulan ic acid, Ampic illin -sulb actam , Piper acill in-ta zobac blakely *Oral cephe ms, such as: Cefac mayi, Cefdi bartolome, Cefpo doxim e, Cefpr ozil, Cefur oxime , Cepha lexin , Lorac arbef *Pare ntera l cephe ms, such as: Cefaz alton, Cefep frederick, Cefot axime , Cefot vinicio, Cefta rolin e, Cefti zoxim e, Ceftr iaxon e, Cefur oxime *Carb apene ms, such as: Dorip enem, Ertap enem, Imipe nem, Merop enem Heavy growt h Not Available [facility] ([facility]) [address] [facility], [place], [address], 07/05/2022 14:06:56 06/29/19 23 07/05/2022 ANAER OBIC AND AEROB IC CULTU RE antimicrobia l susceptibili ty COMMEN T S = Susce ptibl e; I = Inter media te; R = Resis tant P = Posit qing; N = Negat qing MICS are expre ssed in micro grams per mL Antib iotic RSLT# 1 RSLT# 2 RSLT# 3 RSLT# 4 Cipro floxa clarice S Clind amyci n S Eryth romyc in S Genta micin S Levof loxac in S Linez olid S Moxif loxac in S Oxaci llin S Penic illin R Quinu prist in/Da lfopr istin S Rifam pin S Tetra cycli ne S Trime thopr im/Barbosa lfa S Vanco mycin S Not Available [facility] ([facility]) [address] [place], [address], 07/05/2022 14:06:56 Result Notes None recorded. Problems Name Problem SNOMED Code Status Onset Date Resolution Date Notes Provider Name and Address Organization Details Recorded Time Hypercholestero lemia 61923491 Active 2022 JAZZ Jackson [facility] 19:21:46 Heart disease 13630212 Active 2022 MAURICE MONTANO forrest PA - [facility] 3 19:21:58 Hypertensive disorder 13167369 Active 2022 Lita clayton PA - [facility] 3 16:44:41 Problem Notes None recorded. Procedures Surgical History Date Name Laterality Status Provider Name and Address Organization Details Recorded Time I&D, without packing completed Miko Aguiar, DO [address] [place], [address], [place] - [facility] 06/28/2022 19:42:00 placement of stent in cardiac conduit completed Lita Arias PA - [facility] 08/29/2022 16:45:19 Imaging Results None recorded. Procedure Notes None recorded. Medical Equipment None Reported. Allergies No known drug allergies Medications Name Sig Start Date Stop Date Status Note LastModified by Organization Details LastModified Time atorvastatin 80 mg tablet TAKE 1 TABLET BY MOUTH AT BEDTIME active Not Available Not Available No t Available amlodipine 2.5 mg tablet TAKE 1 TAB BY MOUTH DAILY active Not Available Not Available No t Available clopidogrel 75 mg tablet TAKE 1 TABLET BY MOUTH EVERY DAY active Not Available Not Available No t Available aspirin 81 mg tablet,delay ed release TAKE 1 TABLET BY MOUTH EVERY DAY active Not Available Not Available No t Available cephalexin 500 mg capsule TAKE 1 CAPSULE BY MOUTH THREE TIMES A DAY FOR 5 DAYS 08/29 completed Not Available Not Available Not Available metoprolol succinate ER 25 mg tablet,exten ded release 24 hr TAKE 1 TABLET BY MOUTH EVERY DAY active Not Available Not Available No t Available Vitals Date Recorded Body height Provider Name an d Address Organization Details Last Updated DateTime 08/29/2022 172.72 cm Lita Arias PA - [facility] 08/29/2022 16:45:06 Date Recorded Body mass index (BMI) Body weight Provider Name and Address Organization Details Last Updated DateTime 08/29/2022 27.4 kg/m2 73338.63 g Lita Arias PA - [facility] 08/29/2022 16:45:24 Date Recorded Pain severity - 0-10 verbal numeric rating [Score] - Reported Provider Name and Address Organization Details Last Updated DateTime 08/29/2022 2 Lita Arias PA - [facility] 08/29/2022 16:45:43 Date Recorded Heart rate Provider Name an d Address Organization Details Last Updated DateTime 08/29/2022 64 /min Lita Arias PA - [facility] 08/29/2022 16:47:05 Date Recorded Body temperature Provider Name a nd Address Organization Details Last Updated DateTime 08/29/2022 97 [degF] Lita Arias PA - [facility] 08/29/2022 16:47:09 Date Recorded Oxygen saturation Oxygen saturation in Arterial blood by Pulse oximetry Provider Name and Address Organization Details Last Updated DateTime 08/29/2022 97 % 97 % Lita Arias PA - [facility] 08/29/2022 16:47:20 Date Recorded Respiratory rate Provider Name a nd Address Organization Details Last Updated DateTime 08/29/2022 18 /min Lita Arias PA - [facility] 08/29/2022 16:47:24 Date Recorded Body height Provider Name an d Address Organization Details Last Updated DateTime 06/28/2022 172.72 cm MAURICEKimi MONTANO PA - [facility] 06/28/2022 19:23:17 Date Recorded Body mass index (BMI) Body weight Provider Name and Address Organization Details Last Updated DateTime 06/28/2022 27.4 kg/m2 39841.63 g MAURICE MONTANO PA - [facility] 06/28/2022 19:23:20 Date Recorded Pain severity - 0-10 verbal numeric rating [Score] - Reported Provider Name and Address Organization Details Last Updated DateTime 06/28/2022 8 MAURICEKimi PISANOAU PA - [facility] 06/28/2022 19:23:31 Date Recorded Oxygen saturation Oxygen saturation in Arterial blood by Pulse oximetry Provider Name and Address Organization Details Last Updated DateTime 06/28/2022 98 % 98 % MAURICEKimi PISANOAU PA - [facility] 06/28/2022 19:25:05 Date Recorded Heart rate Provider Name an d Address Organization Details Last Updated DateTime 06/28/2022 63 /min MAURICEKimi PISANOAU PA - [facility] 06/28/2022 19:25:09 Date Recorded Respiratory rate Provider Name a nd Address Organization Details Last Updated DateTime 06/28/2022 18 /min MAURICE MONTANO PA - [facility] 06/28/2022 19:25:11 Date Recorded Body temperature Provider Name a nd Address Organization Details Last Updated DateTime 06/28/2022 97.8 [degF] MAURICE MONTANO PA - [facility] 06/28/2022 19:25:53 Date Recorded Systolic blood pressure Diastolic blood pressure Provider Name and Address Organization Details Last Updated DateTime 08/29/2022 116 mm[Hg] 64 mm[Hg] Lita Arias PA - [facility] 08/29/2022 16:47:16 Date Recorded Systolic blood pressure Diastolic blood pressure Provider Name and Address Organization Details Last Updated DateTime 06/28/2022 155 mm[Hg] 77 mm[Hg] MAURICE MONTANO PA - [facility] 06/28/2022 19:24:58 Social History Question Answer Notes LastModified by Organizat ion Details LastModified Time Tobacco Smoking Status Current Every Day Smoker MAURICE MONTANO forrest PA - [facility] 06/28/2022 19:22:45 What Is Your Level Of Alcohol Consumption? Occasional Information not available 06/28/2022 Are You Currently Employed? Yes Information not available 06/28/2022 How Much Tobacco Do You Smoke? 0.5 PPD Information not available 06/28/2022 Do You Use Any Illicit Or Recreational Drugs? No Information not available 06/28/2022 Have You Recently Traveled Abroad? No Information not available 06/28/2022 Do You Or Have You Ever Used Any Other Forms Of Tobacco Or Nicotine? No Information not available 06/28/2022 Sex: Unknown Functional Status None recorded. Mental Status None recorded. Family History Relationship Description Onset Age of this Age Resolved Age Notes LastModified by Organization Details LastModified Time Father Diabetes mellitus Not available 2022 19:22:16 Medical History No medical history recorded. Immunizations Vaccine Type Date Status Note Provider Nam e and Address Organization Details Recorded Time COVID-19, mRNA, LNP-S, PF, 100 mcg/0.5mL dose or 50 mcg/0.25mL dose 12/22/2021 completed MAURICE DUSTY null, PA - [facility] 06/28/2022 19:20:35 COVID-19, mRNA, LNP-S, PF, 30 mcg/0.3 mL dose 10/01/2020 completed MAURICE DUSTY null, PA - [facility] 06/28/2022 19:20:35 COVID-19, mRNA, LNP-S, PF, 100 mcg/0.5mL dose or 50 mcg/0.25mL dose 05/25/2021 completed MAURICE DUSTY null, PA - [facility] 06/28/2022 19:20:35 COVID-19, mRNA, LNP-S, PF, 30 mcg/0.3 mL dose 10/22/2020 completed MAURICE DUSTY null, PA - [facility] 06/28/2022 19:20:35 Past Encounters Encounter ID Performer Location Encounter Start Date Encounter Closed Date Diagnosis/Indication Diagnosis SNOMED-CT Code Diagnosis ICD10 Code Diagnosis Note [id number] [facility] [address] [place] [address] 11/25/2017 14:29:11 11/25/2017 15:32:53 [id number] [facility] [address] [place] [phone] 06/27/2019 18:46:10 06/27/2019 19:47:44 [id number] [facility] [address] [place] [address] 07/14/2020 14:50:23 07/14/2020 16:51:05 [id number] Miko Aguiar DO [facility] [address] [place] [address] 06/28/2022 19:08:51 06/28/2022 19:40:07 Paronychia of finger of left hand [id number] L03.012 [id number] JAZZ SRIVASTAVA [facility] [address] [place] [address] 08/29/2022 14:50:50 08/29/2022 17:18:36 Contusion of right foot [id number] S90.31XA This does not look like an infection. This does not look like Gangrene This does not look like you are having issues with your blood flow. It appears like you dropped someone on your foot and you are developing a bruise. It does sound like you might be experienci ng neuropathy . I would recommend you follow with a bleach range operator regularly. If you really start to worry more - go to the Emergency Room they can do more testing for you to rule out all those concerns you have. Health Concerns Section Related Observation LastModified by Organization Detai ls LastModified Time None Recorded Concern Status LastModified by Organization Details LastModified Time None Recorded Advance Directives Directive None Recorded Payers Encounter Date Sequence Insurance Name Policy Number Policy Malagon Covered Member ID Malagon Member ID Guarantor Name 07/14/2020 1 [facility] [place] [place] [id number] Dean B Ballot [id number] Dean B Ballot 06/28/2022 1 [facility] [place] [place] [id number] Dean B Ballot [id number] Dean B Ballot 08/29/2022 1 [facility] [place] [place] [id number] Dean B Ballot [id number] Dean B Ballot Notes Date Note Type Note Provider Name and Address Organization Details Recorded Time 3 text/html Redness, swelling and pain L 3rd digit. Symptoms x 6 days. Started after papercut. Soaking his finger in pickle juice. No fevers or chills. Miko Aguiar, DO [address] [place], [address], [place] - [facility] 06/28/2022 19:47:45 3 text/html Foot / AnkleReported bypatient.source of patient informationInformation obtained from patient; Patient arrived at Urgent Care ambulatory Location:foot Problemswelling Severity:moderate Duration:4 days Associated Symptoms:no weakness;numbness;tingling; ecchymosis Aggravating factors:worse at nightNotes:The patient presents because he is concerned he had gangrene of the foot. He reports that he has had ongoing issues with tingling and numbness in the foot. He states he dropped a can on his foot a few nights ago. He states now there is this expanding blue area on his foot. JAZZ SRIVASTAVA [address] [place], [address], [place] - [facility] 08/29/2022 17:22:36
[2024-06-26 17:11] LABS: Alanine Aminotransferase 27 U/L (0-40); Albumin Level 4.5 g/dL (3.5-5.0); Alkaline Phosphatase 84 U/L (39-117); Anion Gap 8 (12-20); Aspartate Amino Transferase 29 U/L (5-37); Bilirubin Total 0.9 mg/dL (0.0-1.0); Blood Urea Nitrogen 11 mg/dL (9-16); Calcium 9.3 mg/dL (8.4-10.2); Carbon Dioxide 29 mmol/L (22-29); Chloride 107 mmol/L (96-108); Cholesterol 96 mg/dL (<200); Estimated Glomerular Filt Rate > 60; Glucose Fasting 95 mg/dL (60-99); HDL Cholesterol 35 mg/dL (>40); LDL Cholesterol Calculated 34 mg/dL (<100); Potassium 4.1 mmol/L (3.3-5.1); Sodium 140 mmol/L (135-145); Total Protein 7.2 g/dL (6.5-8.0); Triglycerides 138 mg/dL (<150)
[2024-06-26 17:14] LABS: Estimated Average Glucose 117 mg/dL; Hemoglobin A1C 158.4454 umol/L; Hemoglobin A1c % 5.7 % (<6.0); Total Hemoglobin (HGBA1C) 4029.6903 umol/L
== END 2024-06-26 14:29 | disposition home or self-care (01) ==
LOC: HO.HMGCLDS 14:28
PROVIDERS: PCP Internal Medicine; Visit Provider Internal Medicine
DX: I10 Essential (primary) hypertension (principal); E78.5 Hyperlipidemia, unspecified
CPT/HCPCS: 36415; 80053; 80061; 83036; 85025

== ENCOUNTER 2024-07-01 14:05 | Outpatient (REF) | payer OTHER, SELFPAY | END 2024-07-01 14:06 | disposition home or self-care (01) | LOC: HO.LAB 14:05 | PROVIDERS: PCP Internal Medicine; Visit Provider Internal Medicine | DX: Z00.01 Encounter for general adult medical examination with abnormal findings (principal); I73.9 Peripheral vascular disease, unspecified; L98.9 Disorder of the skin and subcutaneous tissue, unspecified; E78.5 Hyperlipidemia, unspecified; E11.9 Type 2 diabetes mellitus without complications; I35.1 Nonrheumatic aortic (valve) insufficiency; F17.210 Nicotine dependence, cigarettes, uncomplicated; Z79.82 Long term (current) use of aspirin; Z79.899 Other long term (current) drug therapy | CPT/HCPCS: 96127; 99396 ==

== ENCOUNTER 2024-07-01 14:05 | Outpatient (REF) | payer OTHER, SELFPAY ==
[2024-07-01 16:59] LABS: Creatinine Urine 61.91 mg/dL; Microalbum/Creatinine Ratio Ur 17.7 ug/mg cr (<30)
== END 2024-07-01 14:06 | disposition home or self-care (01) ==
LOC: HO.LNP 14:05
PROVIDERS: Visit Provider Internal Medicine
DX: I10 Essential (primary) hypertension (principal); E78.5 Hyperlipidemia, unspecified
CPT/HCPCS: 82043; 82570

== ENCOUNTER → 2024-10-08 15:25 | Outpatient (BNVA) | payer OTHER, SELFPAY | PROVIDERS: PCP Internal Medicine; Visit Provider Internal Medicine Cardiovascular Disease ==

== ENCOUNTER 2024-12-03 13:57 | Outpatient (AMB) | payer OTHER, SELFPAY ==
--- NOTE | 2024-12-03 14:01 | MHC.OFFVIS ---
Vital Signs 12/03/24 14:02 Height 5 ft 8 in Weight 176 lb 12.972 oz BMI 26.9 BP 114/56 L Blood Pressure Location Lt brachial Position Sitting Pulse 65 Pulse Source Monitor Intake Visit Reasons: r/s 10/08/24 4 mos followup Intake Note: r/s 4 mth f/up Accompanied by: Self / Same As Patient Allergies No Known Allergies Allergy (Verified 07/01/24 14:13) Medication List - Last Reconciled 12/03/24 by Stevenson Cuello MD amlodipine 2.5 mg PO DAILY aspirin 81 mg PO DAILY 90 days atorvastatin 80 mg PO BEDTIME blood sugar diagnostic (FreeStyle Lite Strips) Test blood sugar twice a day blood-glucose meter (FreeStyle [place] Lite kit) As directed clopidogrel 75 mg PO DAILY empagliflozin (Jardiance) 10 mg PO DAILY gabapentin 1-2 caps orally bedtime; melatonin 10 mg PO BEDTIME PRN metformin 500 mg PO BIDWMEAL metoprolol succinate ER 25 mg PO DAILY miscellaneous medical supply (Blood Pressure Cuff) As directed nitroglycerin 2% transdermally 2 times a day; apply pea size to R 2nd toe HPI Comments Details: [age] year gentleman who is here for follow-up. In 2020 he underwent cardiac catheterization for unstable angina. This showed severe left main stenosis and LAD diagonal bifurcation stenosis. He also had 80-90% mid RCA stenosis. He was referred for bypass surgery but he refused surgery and eventually was admitted to undergo high-risk PCI to left main and LAD diagonal. This was done in April 2021. RCA was medically treated because he had no symptoms afterwards. Today he is coming for follow-up and has been experiencing chest burning sensation with activity. Yesterday had a bad episode and had to lay down. He is saying that his symptoms are reminding him of his days before he had left main and LAD stenting. His EKGs showing inferior T-wave inversions. He has been taking aspirin and Plavix regularly. He has no recent bleeding. 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 Cognitive needs: No Hearing needs: No Vision needs: Yes Review of Systems Const Denies chills, Denies fatigue, Denies fever(s), Denies frequent falls, Denies weakness, Denies weight gain and Denies weight loss ENT Denies dizziness Card Denies chest pain, Denies leg edema, Denies lightheadedness, Denies palpitations, Denies dyspnea and Denies dyspnea on exertion Resp Denies cough, Denies dyspnea and Denies dyspnea on exertion GI Denies hematochezia Musc Denies abnormal gait, Denies muscle weakness, Denies numbness, Denies radiating pain into limb and Denies tingling Neuro Denies abnormal gait, Denies dizziness, Denies frequent falls, Denies numbness, Denies tingling and Denies weakness Endo Denies fatigue and Denies palpitations Physical Exam Vital Signs: Last Vital Signs Pulse 65 12/03/24 14:02 BP 114/56 L 12/03/24 14:02 BMI result Body Mass Index 26.9 GENERAL APPEARANCE: in no acute distress, pleasant. NECK: no carotid bruit, no jugular venous distention. SKIN: no suspicious lesions, warm and dry. HEART: Early diastolic murmur, regular rate and rhythm. LUNGS: clear to auscultation bilaterally. ABDOMEN: soft, nontender. EXTREMITIES: no edema. PERIPHERAL PULSES: equal. NEUROLOGIC: No gross deficits, AAO X 3 Office Procedures EKG Details: Normal sinus rhythm 65 beats per minute, normal axis, inferior T-wave inversions with ST depressions-ischemic changes, QTC 426 milliseconds [id number], Complete Assessment & Plan Assessment & Plan (1) Essential hypertension: Code(s): I10 - Essential (primary) hypertension Category: Medical (2) Unstable angina: Code(s): I20.0 - Unstable angina Category: Medical Plan [age] year gentleman who is here for chest discomfort. He has known history of coronary disease with previous left main and LAD diagonal bifurcation PCI. He had residual RCA stenosis which was medically treated. His EKGs showing inferior T-wave inversions. His symptoms are quite concerning for unstable angina. I have advised him to go to [facility] and get admitted. We will put him on the cardiac catheterization list for tomorrow. He is already on aspirin Plavix which he will continue. Blood pressure well controlled. He will see us back in 2 weeks. I am going to talk to emergency department at [facility] as he gets admitted and we will arrange a cardiac catheterization. Thank you for allowing me to participate in the care of your patient. Please feel free to contact me if you have any questions. Coding Level of Care Code Est Pt Level 5 (27484) Diagnoses Essential hypertension I10 Unstable angina I20.0 CPT Codes EKG - CPT: 70401-Eztfoanqgxbinqavn, Complete ([id number])
[2024-12-03 14:02] VITALS: BP 114/56; PULSE 65; BMI 26.9
--- OUTSIDE RECORDS SUMMARY | 2024-12-03 14:32 | XMS_ITS | Data Portability ---
Author Organization JAZZ Anderson Cloud[employer] IDEclive jones [address]_[place] City[place] Address [address] [facility] [place] [address] Assessment No assessment recorded. Plan of Treatment Reminders Order Date Submit Date Provider Last Modified By Organization Details Last Modified Time Details Appointments None recorded. Lab culture, wound 2022 023 [facility], [address] [place] [address], [place], [address], 3 12:05:57 Referral skiver uppers or linings referral 2022 023 [email or web address] 6 [facility], [address] [place] [address], [address], 3 10:06:53 Procedures None recorded. Surgeries None recorded. Imaging None recorded. Medication Orders cephalexin 500 mg capsule 2022 023 [facility][id number], [address] [place], [address], 3 16:43:02 Patient TargetsNo targets recorded. Patient Instructions Encounter Date Encounter Id Patient Instructions Last Modified By Organization Details Last Modified Time 06/28/2022 [id number] paronychia: care instructions [email or web address] Not available 06/28/2022 19:39:13 Recommend warm soaks in Epsom salts 2-3 times daily. Can apply sterile band aids as needed, can also leave open to air if no longer draining. Complete the course of antibiotics. You will receive a call if your antibiotic needs to be changed after the wound culture is reviewed. [email or web address] Not available 06/28/2022 19:39:12 08/29/2022 [id number] contusion: care instructions [email or web address] Not available 08/29/2022 17:18:06 Apply heat to th e area - that will help the bruise reabsorb You an put Arnica Cream on the bruise that will help it get better a little quicker, this can be purchased over the counter at the pharmacy. [email or web address] Not available 08/29/2022 17:18:05 Reason for Referral Cryptologic Linguist Referral for Cont usion of right foot Referring Physician: Teresa Leon, Urgent Care, Encounter Date: 08/29/2022 Results Created Date Observation Date Name Description Value Unit Range Abnormal Flag Note LastModifiedBy Organization Detail LastModifiedTime 06/29/1907/04/2022 ANAER OBIC AND AEROB IC CULTU RE anaerobic culture FINAL REPORT Not Available [facility] ([facility]) [address] [place], [address], 07/05/2022 14:06:56 06/29/19 23 07/04/2022 ANAER OBIC AND AEROB IC CULTU RE result 1 COMMEN T No anaer obic growt h in 72 hours . Not Available [facility] ([facility]) [address] [place], [address], 07/05/2022 14:06:56 06/29/19 23 07/05/2022 ANAER OBIC AND AEROB IC CULTU RE aerobic culture FINAL REPORT abnormal Not Available [facility] ([facility]) [address] [place], [address], 07/05/2022 14:06:56 06/29/19 23 07/05/2022 ANAER OBIC [...] enem Heavy growt h Not Available [facility] ([facility]) [address] [facility], [place], [address], 07/05/2022 14:06:56 06/29/19 23 07/05/2022 ANAER OBIC [...] S Vanco mycin S Not Available [facility] ([facility]) [address] [facility], [place], [address], 07/05/2022 14:06:56 Result Notes None recorded. Problems Name Problem SNOMED Code Status Onset Date Resolution Date Notes Provider Name and Address Organization Details Recorded Time Hypercholestero lemia 48466264 Active 2022 JAZZ Jackson [facility] 01/25/202 3 19:21:46 Heart disease 36319358 Active 2022 MAURICE clayton PA - [facility] 3 19:21:58 Hypertensive disorder 27040622 Active 2022 Lita clayton PA - [facility] 3 16:44:41 Problem Notes None recorded. Procedures Surgical History Date Name Laterality Status Provider Name and Address Organization Details Recorded Time 3 I&D, without packing completed Miko Aguiar, DO [address] [place], [address], [place] - [facility] 06/28/2022 19:42:00 placement of stent in cardiac conduit completed Lita SCHULZ - [facility] 08/29/2022 16:45:19 Imaging Results [...] t Available Vitals Date Recorded Body height Body mass index (BMI) Body weight Oxygen saturation Oxygen saturation in Arterial blood by Pulse oximetry Heart rate Respiratory rate Body temperature Systolic blood pressure Diastolic blood pressure Provider Name and Address Organization Details Last Updated DateTime 3 172.72 cm 27.4 kg/m2 71638.6 3 g 98 % 98 % 63 /min 18 /min 97.8 [degF] 155 mm[Hg] 77 mm[Hg] MAURICE MONTANO PA - [facility] 3 19:24:58 Date Recorded Body height Body mass index (BMI) Body weight Heart rate Body temperature Oxygen saturation Oxygen saturation in Arterial blood by Pulse oximetry Respiratory rate Systolic blood pressure Diastolic blood pressure Provider Name and Address Organization Details Last Updated DateTime 172.72 cm 27.4 kg/m2 57150.6 3 g 64 /min 97 [degF] 97 % 97 % 18 /min 116 mm[Hg] 64 mm[Hg] Lita Arias PA - [facility] 16:47:16 Social History Question Answer Notes LastModified by [employer] Details LastModified Time Tobacco Smoking Status Current Every Day Smoker MAURICE clayton PA - [facility] 06/28/2022 19:22:45 How Much Tobacco Do You Smoke? 0.5 PPD Information not available 06/28/2022 Have You Recently Traveled Abroad? No Information not available 06/28/2022 Sex: Unknown Functional Status Question Answer Note LastModified by [employer] Details LastModified Time Do you use any illicit or recreational drugs? No Information not available 06/28/2022 Do you or have you ever used any other forms of tobacco or nicotine? No Information not available 06/28/2022 What is your level of alcohol consumption? Occasional Information not available 06/28/2022 Are you currently employed? Yes Information not available 06/28/2022 Mental Status None recorded. Family History Relationship [...] or 50 mcg/0.25mL dose 12/22/2021 completed MAURICE clayton PA - [facility] 06/28/2022 19:20:35 COVID-19, mRNA, LNP-S, PF, 30 mcg/0.3 mL dose 10/01/2020 completed MAURICE DUSTY null PA - [facility] 06/28/2022 19:20:35 COVID-19, mRNA, LNP-S, PF, 100 mcg/0.5mL dose or 50 mcg/0.25mL dose 05/25/2021 completed AJZZ Jackson - [facility] 06/28/2022 19:20:35 COVID-19, mRNA, LNP-S, PF, 30 mcg/0.3 mL dose 10/22/2020 completed JAZZ Jackson [facility] 06/28/2022 19:20:35 Past Encounters Encounter ID Performer Location Encounter Start Date Encounter Closed Date Diagnosis/Indication Diagnosis SNOMED-CT Code Diagnosis ICD10 Code Diagnosis Note [id number] [facility] [address] [place] [address]678 0 11/25/2017 14:29:11 11/25/2017 15:32:53 [id number] [facility] [address] [place] [address] 34965[address]162 0 06/27/2019 18:46:10 06/27/2019 19:47:44 [id number] [facility] [address] [place] [address] 880[address]-166 0 07/14/2020 14:50:23 07/14/2020 16:51:05 [id number] Miko Aguiar DO [facility] [address] [place] [address] 06/28/2022 19:08:51 06/28/2022 19:40:07 Paronychia of finger of left hand [id number] L03.012 [id number] JAZZ SRIVASTAVA [facility] [address] [place] [address] 08/29/2022 14:50:50 08/29/2022 17:18:36 Contusion of right foot [id number] 6380957 S90.31XA This does not look like an infection. This does not look like Gangrene This does not look like you are having issues with your blood flow. It appears like you dropped someone on your foot and you are developing a bruise. It does sound like you might be experienci ng neuropathy . I would recommend you follow with a skiver uppers or linings regularly. If you really start to worry more - go to the Emergency Room they can do more testing for you to rule out all those concerns you have. Health Concerns Section Related Observation LastModified by Organization Detai ls LastModified Time None Recorded Concern Status LastModified by Organization Details LastModified Time None Recorded Advance Directives Directive None Recorded Payers Insurance Date Sequence Insurance Name Policy Number Policy Malagon Covered Member ID Malagon Member ID Guarantor Name 08/02/2024 1 [facility] (O) [id number] Dean Jenkins [id number] Dean Jenkins Notes Date Note Type Note Provider Name and Address Organization Details Recorded Time 3 text/html Redness, swelling and pain L 3rd digit. Symptoms x 6 days. Started after papercut. Soaking his finger in pickle juice. No fevers or chills. Miko Aguiar, [address] [place], [address], [place] [facility] 06/28/2022 19:47:45 3 text/html Foot / [...] area on his foot. JAZZ SRIVASTAVA [address] [place], [address], [place] [employer] 08/29/2022 17:22:36
== END 2024-12-03 14:46 | disposition home or self-care (01) ==
PROVIDERS: PCP Internal Medicine; Visit Provider Internal Medicine Cardiovascular Disease
DX: I11.9 Hypertensive heart disease without heart failure (principal); I25.110 Atherosclerotic heart disease of native coronary artery with unstable angina pectoris; Z98.61 Coronary angioplasty status; R94.31 Abnormal electrocardiogram [ECG] [EKG]
CPT/HCPCS: 93010; 99215

== ENCOUNTER → 2024-12-03 13:57 | Outpatient (BNVA) | payer OTHER, SELFPAY | PROVIDERS: PCP Internal Medicine; Visit Provider Internal Medicine Cardiovascular Disease | DX: I10 Essential (primary) hypertension (principal); I20.0 Unstable angina | CPT/HCPCS: 93005; 99212 ==

== ENCOUNTER 2025-01-19 16:58 | Outpatient (REF) | payer MEDICARE, SELFPAY ==
[2025-01-19 17:32] LABS: INTERNATIONAL NORM RATIO 1.0 (0.9-1.1); Prothrombin Time 11.4 SEC (10.9-12.4)
[2025-01-19 17:41] LABS: Hematocrit 44.9 % (42.0-52.0); Hemoglobin 15.4 g/dl (14.0-18.0); Mean Corpuscular HGB Conc 34.3 g/dl (31.0-36.0); Mean Corpuscular Hemoglobin 29.5 pg (27.0-33.0); Mean Corpuscular Volume 86.0 fL (80.0-98.0); NRBC Abs Auto 0.000 X10*3/uL (0.0-0.012); NRBC Pct Auto 0.0 /100WBC (0.0-0.2); Platelet Count 205 X10*3/uL (160-400); Red Blood Count 5.22 X10*6/uL (4.60-5.80); White Blood Count 5.9 X10*3/uL (4.8-10.8)
[2025-01-19 17:53] LABS: Anion Gap 11 (12-20); Blood Urea Nitrogen 11 mg/dL (9-16); Calcium 9.5 mg/dL (8.4-10.2); Carbon Dioxide 28 mmol/L (22-29); Chloride 105 mmol/L (96-108); Estimated Glomerular Filt Rate > 60; Potassium 4.3 mmol/L (3.3-5.1); Sodium 140 mmol/L (135-145)
== END 2025-01-19 16:59 | disposition home or self-care (01) ==
LOC: HO.LAB 16:58
PROVIDERS: PCP Internal Medicine; Visit Provider Internal Medicine Cardiovascular Disease
DX: I25.10 Atherosclerotic heart disease of native coronary artery without angina pectoris (principal)
CPT/HCPCS: 36415; 80048; 85027; 85610

== ENCOUNTER → 2025-01-20 23:59 | Outpatient (BNV) | payer MEDICARE, SELFPAY | PROVIDERS: PCP Internal Medicine; Visit Provider Internal Medicine Cardiovascular Disease | DX: I25.118 Atherosclerotic heart disease of native coronary artery with other forms of angina pectoris (principal) | CPT/HCPCS: 92928; 92978; 93458; 99152 ==

== ENCOUNTER 2025-03-19 13:40 | Outpatient (AMB) | payer MEDICARE, SELFPAY ==
[2025-03-19 13:48] VITALS: BP 134/64; PULSE 62; RESP 18; TEMP 36.5; O2SAT 96; BMI 26.6
--- NOTE | 2025-03-19 13:48 | A.OFFPC_ITS ---
Vital Signs 03/19/25 13:48 Height 5 ft 8 in Weight 175 lb BMI 26.6 BP 134/64 Blood Pressure Location Lt brachial Position Sitting Respiration 18 Pulse 62 Pulse Source Pulse Oximeter Temp 97.7 F Temp Source Oral Pulse Oximetry (%) 96 Oxygen Delivery Method Room Air Intake Visit Reasons: 6 months f/up Intake Note: Pt is here today for 6 months follow up visit. Allergies No Known Allergies Allergy (Verified 03/19/25 13:53) Tobacco use date assessed: 03/19/25 Fall risk assessment: No Falls in past year Last assessed Fall Risk: 03/19/25 Dental Screening Dental Screen Date: 07/01/24 HPI 6 months f/up HPI Details Pt presents for f/u DM 2, hyperlipid, HTN. Pt stopped taking Jardiance because of high cost. Patient had diagnostic cardiac catheterization and 2 STEVEN placed in RCA in December. He is established with a [facility]. 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, Housing: House Alcohol intake: never Patient Tobacco Use Status: Current everyday Tobacco user Tobacco use type: Cigarette Cigarettes Per Day: 10 Years Smoked: 15 +/- e-Cigarette/Vaping Use: Never Used service: No Current occupational status: employed 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 Cognitive needs: No Hearing needs: No Vision needs: Yes Questionnaire Thrive Questionnaire Date Thrive assessed: 07/01/24 I am a: Patient What is your living situation today?: I have a steady place to live Within the past 12 months, did the food you bought not last and you didn't have the money to get more?: Never true Within the past 12 months, did you worry whether your food would run out before you got money to buy more?: Never true Do you have trouble paying for medicines?: No Do you have trouble getting transportation to medical appointments?: No Do you have trouble paying your heating and electricity bill?: No Do you have trouble taking care of your child, family member or friend?: No Do you have trouble with day-to-day activities such as bathing, preparing meals, shopping, managing finances, etc.?: No Are you currently unemployed and looking for a job?: No Are you interested in more education?: No Please select the resources that you would like help with: None Currently or been in a relationship where the following occur: No concerns reported THRIVE Score: 0 ERROL-7 AMB Questionnaire ERROL-7 Date ERROL - 7 assessed: 07/01/24 Source: Developed by Drs. Dean Partida, Marjorie Tovar, Redd Ortega and colleagues, with an educational pranay from [employer]. Review of Systems Const All systems reviewed & are unremarkable except as noted in HPI and below Card Reports no additional complaints Resp Reports no additional complaints GI Reports no additional complaints Reports no additional complaints Physical exam (Primary Care) Vital Signs: Last Vital Signs Temp 97.7 F 03/19/25 13:48 Pulse 62 03/19/25 13:48 Resp 18 03/19/25 13:48 BP 134/64 03/19/25 13:48 Pulse Ox 96 03/19/25 13:48 Oxygen Delivery Method Room Air 03/19/25 13:48 BMI result Body Mass Index 26.6 Tobacco/Smoking Status: Tobacco use Status Tobacco use date assessed 03/19/25 03/19/25 13:57 Patient Tobacco Use Status Current everyday Tobacco 03/19/25 13:49 Tobacco use type Cigarette 03/19/25 13:49 e-Cigarette/Vaping Use Never Used 03/19/25 13:49 Thrive Assessment: Date of Thrive Assessment Date Thrive assessed 07/01/24 03/19/25 13:49 Currently or been in a relationship where the following occur: No concerns reported Const General: no acute distress HENMT Head: Yes normal to inspection Neck Neck: Yes supple Resp Effort & Inspection: normal respiratory effort Auscultation: clear to auscultation bilaterally Cardio Rhythm: regular rhythm Heart sounds: S1 normal heart sound present and S2 normal heart sound present Results AMB Hemoglobin A1c AMB Hemoglobin A1c 5.7 % Last Edit by LIGIA Garcia on 03/19/25 14:1 9 Coding Level of Care Code Est Pt Level 4 (66558) Diagnoses Essential hypertension I10 Coronary atherosclerosis I25.10 Hyperlipidemia LDL goal <70 E78.5 Diabetes E11.9 Assessment & Plan Assessment & Plan (1) Essential hypertension: Code(s): I10 - Essential (primary) hypertension Category: Medical Plan: Continue current medications (2) Coronary atherosclerosis: Comment: S/P 3 STEVEN : L main, LAD, diagonal 04/24, remaining dominant R coronary 80% stenosis , pt refused CABG, S/P 2 STEVEN for mid and proxymal RCA 01/11/2025 F/U Dr. Cuello Code(s): I25.10 - Atherosclerotic heart disease of [place] coronary artery without angina pectoris Category: Medical Plan: Continue aspirin clopidogrel high dose statin and follow-up with the Cardiology (3) Hyperlipidemia LDL goal <70: Code(s): E78.5 - Hyperlipidemia, unspecified Category: Medical Plan: Continue statin (4) Diabetes: Comment: A1C 5.7 03/2025, Jardiance too expensive Code(s): E11.9 - Type 2 diabetes mellitus without complications Category: Medical Plan: A1c is 5.7. Continue ADA diet regular exercise and metformin follow-up in 6 months with a fasting labs before. Patient would like to check [place] of Farxiga with his insurance Orders: Orders Comprehensive [place]. Panel Fast 6 Months E11.9 - Type 2 diabetes mellitus without complications, E78.5 - Hyperlipidemia, unspecified, I10 - Essential (primary) hypertension, I25.10 - Atherosclerotic heart disease of [place] coronary artery without angina pectoris Hemoglobin A1c 6 Months E11.9 - Type 2 diabetes mellitus without complications, E78.5 - Hyperlipidemia, unspecified, I10 - Essential (primary) hypertension Lipid Panel 6 Months E11.9 - Type 2 diabetes mellitus without complications, E78.5 - Hyperlipidemia, unspecified, I10 - Essential (primary) hypertension Complete Blood Count Auto Diff 6 Months E11.9 - Type 2 diabetes mellitus without complications, E78.5 - Hyperlipidemia, unspecified, I10 - Essential (primary) hypertension Microalbumin, Random (w Creat) 6 Months E11.9 - Type 2 diabetes mellitus without complications, E78.5 - Hyperlipidemia, unspecified, I10 - Essential (primary) hypertension AMB Hemoglobin A1c Today Z13.9 - Encounter for screening, unspecified Medications: New Farxiga (dapagliflozin propanediol) 5 mg PO DAILY 30 tabs 3RF NS Farxiga (dapagliflozin propanediol) 5 mg PO DAILY 90 tabs 3RF NS Refilled amlodipine 2.5 mg PO DAILY 90 tabs 3RF I10 - Essential (primary) hypertension amlodipine 2.5 mg PO DAILY 90 tabs 3RF I10 - Essential (primary) hypertension Discontinued empagliflozin (Jardiance) Discontinued Reason: Doctor's Order 10 mg PO DAILY 90 tabs 3RF
--- OUTSIDE RECORDS SUMMARY | 2025-03-19 17:25 | XMS_ITS | Data Portability ---
Author Organization JAZZ Anderson [facility] Department[facility] jones [address]_[place] CanyonAnne Marieandrei Address [address] [place] [address] Assessment No assessment recorded. Plan of Treatment Reminders Order Date Submit Date Provider Last Modified By Organization Details Last Modified Time Details Appointments None recorded. Lab culture, wound 2022 023 [facility], [address] [place] [address], [place], [address], 3 12:05:57 Referral bonbon cream warmer referral 2022 023 6 [facility], [address] [place] [address], [address], 3 10:06:53 Procedures None recorded. Surgeries None recorded. Imaging None recorded. Medication Orders cephalexin 500 mg capsule 2022 023 [facility][id number], [address] [place], [address], 3 16:43:02 Patient TargetsNo targets recorded. Patient Instructions Encounter Date Encounter Id Patient Instructions Last Modified By Organization Details Last Modified Time 06/28/2022 [id number] paronychia: care instructions [email or web address] Not available 06/28/2022 19:39:13 Recommend warm soaks in Epsom salts 2-3 times daily. Can apply sterile band aids as needed, can also leave open to air if no longer draining. Complete the course of antibiotics. You will receive a call if your antibiotic needs to be changed after the wound culture is reviewed. [email or web address] Not available 06/28/2022 19:39:12 08/29/2022 [id number] contusion: care instructions [email or web address] Not available 08/29/2022 17:18:06 Apply heat to th e area - that will help the bruise reabsorb You an put Arnica Cream on the bruise that will help it get better a little quicker, this can be purchased over the counter at the pharmacy. 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 Not Available [facility] ([facility]) [address] [place], [address], 07/05/2022 14:06:56 06/29/19 23 07/05/2022 ANAER OBIC AND AEROB IC CULTU RE aerobic culture FINAL REPORT abnormal Not Available [facility] ([facility]) [address] [place], [address], 07/05/2022 14:06:56 06/29/19 23 07/05/2022 ANAER OBIC [...] enem Heavy growt h Not Available [facility] ([facility]) [address] [facility], [place], [address], 07/05/2022 14:06:56 06/29/19 23 07/05/2022 ANAER OBIC [...] S Vanco mycin S Not Available [facility] ([facility]) [address] [facility], [place], [address], 07/05/2022 14:06:56 Result Notes None recorded. Problems Name Problem SNOMED Code Status Onset Date Resolution Date Notes Provider Name and Address Organization Details Recorded Time Hypercholestero lemia 79570765 Active 2022 JAZZ Jackson [facility] 01/25/202 3 19:21:46 Heart disease 19492768 Active 2022 MAURICE clayton PA - [facility] 3 19:21:58 Hypertensive disorder 30917802 Active 2022 Lita clayton PA - [facility] 3 16:44:41 Problem Notes None recorded. Procedures Surgical History Date Name Laterality Status Provider Name and Address Organization Details Recorded Time 3 I&D, without packing completed Miko Aguiar, DO [address] [place], [address], [place] - [facility] 06/28/2022 19:42:00 placement [...] height Body mass index (BMI) Body weight Pain severity - 0-10 verbal numeric rating [Score] - Reported Oxygen saturation Oxygen saturation in Arterial blood by Pulse oximetry Heart rate Respiratory rate Body temperature Systolic And Diastolic Provider Name and Address Organization Details Last Updated DateTime 3 172.72 cm 27.4 kg/m2 64265.6 3 g 8 98 % 98 % 63 /min 18 /min 97.8 [degF] 155/77 mm[Hg] MAURICE OMNTANO PA - [facility] 3 19:24:58 Date Recorded Body height Body mass index (BMI) Body weight Pain severity - 0-10 verbal numeric rating [Score] - Reported Heart rate Body temperature Oxygen saturation Oxygen saturation in Arterial blood by Pulse oximetry Respiratory rate Systolic And Diastolic Provider Name and Address Organization Details Last Updated DateTime 3 172.72 cm 27.4 kg/m2 86511.6 3 g 2 64 /min 97 [degF] 97 % 97 % 18 /min 116/64 mm[Hg] Lita Vegaaleyda PA - [facility] 3 16:47:16 Social History Question Answer Notes LastModified by [employer] Details LastModified Time Tobacco Smoking Status Current Every Day Smoker MAURICE clayton PA [place] [facility] 06/28/2022 19:22:45 How Much Tobacco Do You Smoke? 0.5 PPD Information not available 06/28/2022 Have You Recently Traveled Abroad? No Information not available 06/28/2022 Sex: Unknown Functional Status Question Answer Note LastModified by [employer] Details LastModified Time Do you use any [...] mcg/0.25mL dose 12/22/2021 completed MAURICE clayton PA [place] [facility] 06/28/2022 19:20:35 COVID-19, mRNA, LNP-S, [...] Diagnosis SNOMED-CT Code Diagnosis ICD10 Code Diagnosis IMO Codes Diagnosis Note [id number] [facility] [address] [place] [address] 11/25/2017 14:29:11 11/25/2017 15:32:53 [id number] [facility] [address] [place] [address] 06/27/2019 18:46:10 06/27/2019 19:47:44 [id number] [facility] [address] [place] [address] 07/14/2020 14:50:23 07/14/2020 16:51:05 [id number] Miko Aguiar DO [facility] [address] [place] [address] 06/28/2022 19:08:51 06/28/2022 19:40:07 Paronychia of finger of left hand 2985837594 3370426 L03.012 [id number] JAZZ SRIVASTAVA [address] [address] [place] [address] 08/29/2022 14:50:50 08/29/2022 17:18:36 Contusion of right foot 8092472130 9468491 S90.31XA This does not look like an infection. This does not look like Gangrene This does not look like you are having issues with your blood flow. It appears like you dropped someone on your foot and you are developing a bruise. It does sound like you might be experienci ng neuropathy . I would recommend you follow with a bonbon cream warmer regularly. If you really start to worry [...] Malagon Member ID Guarantor Name 08/02/2024 1 [facility] (O) [id number] Dean Jenkins [id number] Dean Jenkins Notes Date Note Type Note Provider Name and Address Organization Details Recorded Time 06/28/2022 text/html Skin Redness UCR eported by Patient Redness, swelling and pain L 3rd digit. Symptoms x 6 days. Started after papercut. Soaking his finger in pickle juice. No fevers or chills. Miko Aguiar DO [address] [place], [address], [place] - [facility] 06/28/2022 19:47:45 08/29/2022 text/html Foot / AnkleRepo rted by PatientHPIFor associated symptoms, patient reportsnumbness,tinglin g, andecchymosisbut reportsno weakness. For source of patient information, patient reportsinformation obtained from patientandpatient arrived at urgent care ambulatory. For location, patient reportsfoot. For problem, patient reportsswelling. For severity, patient reportsmoderate. For duration, patient reports4 days. For aggravating factors, patient reportsworse at night.The patient presents because he is concerned he had gangrene of the foot. He reports that he has had ongoing issues with tingling and numbness in the foot. He states he dropped a can on his foot a few nights ago. He states now there is this expanding blue area on his foot. TERESA FINET, PA [address] [place], [address], JAZZ - [facility] 08/29/2022 17:22:36
== END 2025-03-19 15:42 | disposition home or self-care (01) ==
LOC: HO.HMCC 13:41
PROVIDERS: PCP Internal Medicine; Visit Provider Internal Medicine
DX: I10 Essential (primary) hypertension (principal); I25.10 Atherosclerotic heart disease of native coronary artery without angina pectoris; E78.5 Hyperlipidemia, unspecified; E11.9 Type 2 diabetes mellitus without complications; Z13.9 Encounter for screening, unspecified

== ENCOUNTER → 2025-03-19 13:40 | Outpatient (BNVA) | payer MEDICARE, SELFPAY | PROVIDERS: PCP Internal Medicine; Visit Provider Internal Medicine | DX: I10 Essential (primary) hypertension (principal); E11.9 Type 2 diabetes mellitus without complications; E78.5 Hyperlipidemia, unspecified; I25.10 Atherosclerotic heart disease of native coronary artery without angina pectoris | CPT/HCPCS: 83036; 99212 ==